=== PATIENT | female | born 1990 | race African-American/Black ===

== ENCOUNTER → 2016-07-12 | Outpatient (CLI) | payer OTHER ==
[2015-12-17 12:19] VITALS: BP 126/82
[~2016-07-12] MED LIST: AMOX500C PO; AMOX875T PO; HYDR-971 PO; IBUP-1060 PO; OXYC-244 PO; PREN1TAB58 PO
--- NOTE | 2016-07-12 15:38 | KCIC ---
PROCEDURE Transabdominal and transvaginal sonography of the pelvis HISTORY Pelvic pain. Irregular menstrual cycles. IUD placed in 2013. COMPARISON None available. FINDINGS Transabdominal sonography: The uterus is anteverted in position. The uterus and endometrial canal poorly visualized. Therefore, transvaginal sonography will be performed. Neither ovary is visualized. No adnexal masses are seen. Transvaginal sonography: The uterus is retroverted. The longitudinal and AP and transverse dimensions of the uterus are 8.3 centimeters and 4.2 centimeters and 5.5 centimeters respectively. An IUD is seen within the central aspect of the endometrial canal which is proper position. The endometrial canal measures 9 millimeters in thickness without hyperemia. No uterine mass or fibroid is seen. The right ovary measures 4.0 centimeters and 2.3 centimeters and 4.4 centimeters respectively. Multiple follicular cysts of the right ovary are seen. A collapsed corpus luteum is seen measuring 2.2 centimeters in size. The left ovary measures 4.1 centimeters and 2.4 centimeters and 3.4 centimeters in size and contains a number of follicular cysts. Color Doppler flow is seen within both ovaries. Pelvic varices are seen. IMPRESSION Pelvic varices. IUD in proper position. Electronically signed by: Akin Blackwell MD (Jul 12, 2016 15:37:14)
== END | disposition home or self-care (01) ==
LOC: KCIC US 09:50
PROVIDERS: ATTEND Family Medicine
DX: R10.2 Pelvic and perineal pain (principal); N92.6 Irregular menstruation, unspecified
CPT/HCPCS: 76830; 76856

== ENCOUNTER 2016-07-28 08:39 | Emergency (ER) | payer OTHER ==
[~2016-07-28] VITALS: Ht 154.9 cm; Wt 68.0 kg
[2016-07-28 09:10] VITALS: BP 138/75
[2016-07-28] MEDS ORDERED: KETOROLAC TROMETHAMINE 30 MG/ML INJ. IV ONE (09:15)
[2016-07-28] MEDS ORDERED: IV NORMAL SALINE 1000ML BAG 1,000 ML IV ONE (09:15)
--- NOTE | 2016-07-28 09:19 | PHYS DOC ---
Past Medical History Past Medical History: No Pertinent History Past Surgical History: Additional Past Surgical Histo: Oral surgery 12/14/2013 Alcohol Use: None Drug Use: None Adult General Chief Complaint Chief Complaint: DIZZY/LIGHT HEADED HPI HPI Patient is a 26 year old female who presents with near syncope. 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 She also reports mild frontal aching headache which is typical for her as she is blind in her right eye and has frequent tension type headaches. This headache not sudden in onset and not the worst headache of her life. She reports 2 day history of loose stools without fevers, abdominal pain, vomiting, hematochezia or melena. Denies actual syncope, fevers, chest pain, palpitations, shortness of breath, extremity numbness or weakness. Nonsmoker. PCP is Dr. Suero. Review of Systems Review of Systems Constitutional: Denies fever or chills , reports near syncope Eyes: Denies change in visual acuity HENT: Denies nasal congestion or sore throat Respiratory: Denies cough or shortness of breath Cardiovascular: Denies chest pain or edema GI: Denies abdominal pain, nausea, vomiting, bloody stools, reports diarrhea : Denies dysuria or hematuria Musculoskeletal: Denies back pain or joint pain Integument: Denies rash or skin lesions Neurologic: Reports headache, denies focal weakness or sensory changes Current Medications Current Medications Current Medications Medications (Trade) Dose Ordered Sig/Yael Start Time Stop Time Status Last Admin Dose Admin Ketorolac Tromethamine (Toradol) 30 mg 1X ONCE 07/28/16 09:15 07/28/16 09:19 DC 07/28/16 09:36 30 MG Ondansetron HCl (Zofran) 4 mg 1X ONCE 07/28/16 09:45 07/28/16 09:46 DC 07/28/16 09:41 4 MG Sodium Chloride (Iv Sodium Chloride 0.9% 1000ml Bag) 1,000 ml @ 1,000 mls/hr 1X ONCE 07/28/16 09:15 07/28/16 10:14 DC 07/28/16 09:36 1,000 MLS/HR Allergies Allergies Allergies Coded Allergies Type Severity Reaction Last Updated Verified No Known Drug Allergies 11/13/14 No Physical Exam Physical Exam Constitutional: Well developed, well nourished, no acute distress, non-toxic appearance. HENT: Normocephalic, atraumatic, bilateral external ears normal, oropharynx moist, nose normal. No sinus tenderness with palpation, posterior oropharynx no erythema, no tonsillar enlargement or exudate Eyes: PERRLA, EOMI, conjunctiva normal, no discharge. Blind in right eye. Neck: supple, no stridor. No meningismus Cardiovascular: RRR, no murmurs, no edema. Lungs & Thorax: LCTAB, no wheezing, no respiratory distress. Abdomen: soft, nontender, nondistended. Skin: Warm, dry, no erythema, no rash. Back: No tenderness. Extremities: No tenderness, no edema. No calf tenderness or swelling Neurologic: Alert and oriented X 3, cranial nerves II through XII grossly intact , symmetric strength and sensation upper and lower extremities, no focal deficits noted. Psychologic: Affect normal, judgement normal, mood normal. Current Patient Data Vital Signs Vital Signs Date Time Temp Pulse Resp B/P Pulse Ox O2 Delivery O2 Flow Rate FiO2 07/28/16 11:00 70 16 100 Room Air 07/28/16 09:10 98.4 98.4 Lab Values Laboratory Tests Test 07/28/16 08:24 07/28/16 09:07 07/28/16 09:27 POC Urine HCG, Qualitative Hcg negative (Negative) Urine Collection Type Unknown Urine Color Yellow Urine Clarity Clear Urine pH 5.5 Urine Specific [place] >=1.030 Urine Protein Negativemg/dL (NEG-TRACE) Urine Glucose (UA) Negativemg/dL (NEG) Urine Ketones (Stick) Negativemg/dL (NEG) Urine Blood Negative (NEG) Urine Nitrite Negative (NEG) Urine Bilirubin Negative (NEG) Urine Urobilinogen Dipstick 0.2mg/dL (0.2 mg/dL) Urine Leukocyte Esterase Negative (NEG) Urine RBC 0/HPF (0-2) Urine WBC Occ/HPF (0-4) Urine Squamous Epithelial Cells Many/LPF Urine Bacteria 0/HPF (0-FEW) Urine Mucus Marked/LPF White Blood Count 3.2x10^3/uL (4.0-11.0) L Red Blood Count 4.50x10^6/uL (3.50-5.40) Hemoglobin 11.0g/dL (12.0-15.5) L Hematocrit 34.6% (36.0-47.0) L Mean Corpuscular Volume 77fL (79-100) L Mean Corpuscular Hemoglobin 25pg (25-35) Mean Corpuscular Hemoglobin Concent 32g/dL (31-37) Red Cell Distribution Width 16.3% (11.5-14.5) H Platelet Count 249x10^3/uL (140-400) Neutrophils (%) (Auto) 39% (31-73) Lymphocytes (%) (Auto) 50% (24-48) H Monocytes (%) (Auto) 9% (0-9) Eosinophils (%) (Auto) 2% (0-3) Basophils (%) (Auto) 1% (0-3) Neutrophils # (Auto) 1.2x10^3uL (1.8-7.7) L Lymphocytes # (Auto) 1.6x10^3/uL (1.0-4.8) Monocytes # (Auto) 0.3x10^3/uL (0.0-1.1) Eosinophils # (Auto) 0.1x10^3/uL (0.0-0.7) Basophils # (Auto) 0.0x10^3/uL (0.0-0.2) Sodium Level 136mmol/L (136-145) Potassium Level 3.9mmol/L (3.5-5.1) Chloride Level 105mmol/L (98-107) Carbon Dioxide Level 28mmol/L (21-32) Anion Gap 3 (6-14) L Blood Urea Nitrogen 15mg/dL (7-20) Creatinine 0.8mg/dL (0.6-1.0) Estimated GFR (Cockcroft-Gault) 106.6 Glucose Level 85mg/dL (70-99) Calcium Level 8.5mg/dL (8.5-10.1) Laboratory Tests 07/28/16 09:27 Laboratory Tests 07/28/16 09:27 EKG EKG interpreted by me: NSR rate 67, no acute ST/T wave changes, normal intervals, no ectopy.[] Radiology/Procedures Radiology/Procedures [] Course & Med Decision Making Course & Med Decision Making Pertinent Labs and Imaging studies reviewed. (See chart for details) Patient presents with near syncope. Vitals stable, normal exam, no orthostatic hypotension. Gave IV fluids. Labs show mild leukopenia & anemia, both similar to previous visits. Patient felt better. Recommend rest, PO hydration, regular meals, stand slowly from sitting. Follow up in 2-[address] Suero if not improving. Come back for multiple syncope, severe/sudden onset headache, focal neuro deficit, any otherwise worsening condition. Discharged home in stable condition. [] Dragon Disclaimer Dragon Disclaimer This electronic medical record was generated, in whole or in part, using a voice recognition dictation system. Departure Departure Impression: Primary Impression: Near syncope Disposition: HOME, SELF-CARE Condition: STABLE Referrals: CIARA SUERO MD (PCP) Patient Instructions: Near-Syncope, Xliy-[id number] Additional Instructions: You were seen in the emergency department today for near fainting. No serious cause was found on your evaluation here. Please rest, drink fluids to stay hydrated, follow up with Dr. Suero in 2-3 days. Come back for worst headache of your life or sudden onset of severe headache, multiple episodes of fainting, numbness or weakness in arms or legs, any otherwise worsening condition. Scripts Ondansetron (Zofran Odt)4 Mg Tab.rapdis1 Tab SL Q8HRS PRN NAUSEA #10 TAB Prov:FRANCISCO GARCÍA MD 07/28/16 FRANCISCO GARCÍA MD Jul 28, 2016 09:19
[2016-07-28 09:42] LABS: BASO % 1 % (0-3); EOS % 2 % (0-3); HEMATOCRIT 34.6 % (36.0-47.0); LYMPH # 1.6 x10^3/uL (1.0-4.8); LYMPH % 50 % (24-48); MEAN CORPUSCULAR HEMOGLOBIN 25 pg (25-35); MEAN CORPUSCULAR HGB CONC 32 g/dL (31-37); MEAN CORPUSCULAR VOLUME 77 fL (79-100); MONO % 9 % (0-9); NEUT % 39 % (31-73); PLATELET COUNT 249 x10^3/uL (140-400); RED CELL DISTRIBUTION WIDTH 16.3 % (11.5-14.5); WHITE BLOOD COUNT 3.2 x10^3/uL (4.0-11.0)
[2016-07-28 09:43] LABS: BILIRUBIN,URINE NEGATIVE (NEG); GLUCOSE,URINE NEGATIVE (NEG); NITRITE,URINE NEGATIVE (NEG); PH,URINE 5.5; PROTEIN,URINE NEGATIVE (NEG-TRACE); UROBILINOGEN,URINE 0.2 mg/dL (0.2 mg/dL)
[2016-07-28 09:44] LABS: CALCIUM 8.5 mg/dL (8.5-10.1); CREATININE 0.8 mg/dL (0.6-1.0); GFR 106.6; POTASSIUM 3.9 mmol/L (3.5-5.1)
[2016-07-28] MEDS ORDERED: ONDANSETRON PF 4 MG/2 ML VIAL. IV ONE (09:45)
--- NOTE | 2016-07-28 10:21 | EKG ---
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
[2016-07-28 10:22] LABS: BACTERIA,URINE 0 /HPF (0-FEW); RBC,URINE 0 /HPF (0-2); SQUAMOUS EPITHELIAL CELL,UR MANY /LPF; WBC,URINE OCC /HPF (0-4)
[2016-07-28] MEDS ORDERED: ONDA4TAB10 SL (11:10)
== END 2016-07-28 11:03 | disposition home or self-care (01) ==
LOC: ER 08:39
DX: R55 Syncope and collapse (principal); G44.209 Tension-type headache, unspecified, not intractable; R42 Dizziness and giddiness; H54.41 Blindness, right eye, normal vision left eye
CPT/HCPCS: 36415; 80048; 81001; 81025; 85027; 93005; 96361; 96374; 96375; 99285; J1885; J2405; J7030

== ENCOUNTER 2016-09-10 13:17 | Emergency (ER) | payer OTHER ==
[~2016-09-10] VITALS: Ht 154.9 cm; Wt 68.0 kg
[~2016-09-10 13:17] MED LIST changes: +ONDA4TAB10 SL
[2016-09-10 13:33] VITALS: BP 126/71
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
[2016-09-10] MEDS ORDERED: CYCL10TA2 PO (15:21)
[2016-09-10] MEDS ORDERED: IBUPROFEN 800 MG TABLET. PO ONE (15:30)
== END 2016-09-10 15:32 | disposition home or self-care (01) ==
LOC: ER 13:17
DX: S16.1XXA Strain of muscle, fascia and tendon at neck level, initial encounter (principal); S39.012A Strain of muscle, fascia and tendon of lower back, initial encounter; V43.52XA Car driver injured in collision with other type car in traffic accident, initial encounter; Y93.89 Activity, other specified; Y92.413 State road as the place of occurrence of the external cause; Y99.8 Other external cause status
CPT/HCPCS: 70450; 72100; 72125; 81025; 99284-25

== ENCOUNTER 2017-03-18 15:52 | Emergency (ER) | payer OTHER ==
[~2017-03-18] VITALS: Ht 154.9 cm; Wt 70.3 kg
[~2017-03-18 15:52] MED LIST changes: +CYCL10TA2 PO; -OXYC-244 PO; +OXYC-327 PO
[2017-03-18] MEDS ORDERED: BENZONATATE 100 MG CAPSULE. PO ONE (16:30)
[2017-03-18] MEDS ORDERED: ACETAMINOPHEN 500 MG TABLET PO ONE (16:30)
[2017-03-18 16:52] LABS: BILIRUBIN,URINE NEGATIVE (NEG); GLUCOSE,URINE NEGATIVE (NEG); NITRITE,URINE NEGATIVE (NEG); PH,URINE 6.5; PROTEIN,URINE NEGATIVE (NEG-TRACE); UROBILINOGEN,URINE 0.2 mg/dL (0.2 mg/dL)
[2017-03-18 17:05] LABS: BACTERIA,URINE MANY /HPF (0-FEW); SQUAMOUS EPITHELIAL CELL,UR MANY /LPF; WBC,URINE 20-40 /HPF (0-4)
[2017-03-18 17:31] LABS: OBC FLU VALID
[2017-03-18] MEDS ORDERED: BENZ100C PO (18:14)
[2017-03-18] MEDS ORDERED: CEPH-264 PO (18:14)
[2017-03-18] MEDS ORDERED: PROAIR HFA8.5 GM INH (18:14)
[2017-03-18] MEDS ORDERED: AZIT250T6 PO (18:14)
--- NOTE | 2017-03-18 18:14 | PHYS DOC ---
Past Medical History Past Medical History: Other Additional Past Medical Histor: BLIND R EYE Past Surgical History: , Other Additional Past Surgical Histo: Oral surgery 12/14/2013 Alcohol Use: None Drug Use: None Adult General Chief Complaint Chief Complaint: FLU SYMPTOM HPI HPI Patient is a 26 year old female who presents with illness The patient reports 4 day history of loose stools several times daily, now with cough productive of green/yellow sputum, sore throat, nasal congestion, dysuria, subjective fever. Denies shortness of breath, chest pain, abdominal pain, nausea, vomiting. She did not take medication prior to arrival. 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 Review of Systems Review of Systems Constitutional: Reports fever Eyes: Denies drainage HENT: Reports nasal congestion & sore throat Respiratory: Reports cough, denies shortness of breath Cardiovascular: Denies chest pain or edema GI: Denies abdominal pain, nausea, vomiting, reports diarrhea : Reports dysuria. Musculoskeletal: Denies back pain or joint pain Integument: Denies rash Neurologic: Denies headache, focal weakness or sensory changes All other systems were reviewed and found to be within normal limits, except as documented in this note. Current Medications Current Medications Current Medications Medications (Trade) Dose Ordered Sig/Yael Start Time Stop Time Status Last Admin Dose Admin Acetaminophen (Tylenol) 1,000 mg 1X ONCE 03/18/17 16:30 03/18/17 16:31 DC 03/18/17 16:53 1,000 MG Benzonatate (Tessalon Perle) 100 mg 1X ONCE 03/18/17 16:30 03/18/17 16:31 DC 03/18/17 16:53 100 MG Allergies Allergies Allergies Coded Allergies Type Severity Reaction Last Updated Verified No Known Drug Allergies 03/04/14 No Physical Exam Physical Exam Constitutional: Well developed, well nourished, no acute distress, non-toxic appearance. HENT: Normocephalic, atraumatic, bilateral external ears normal, oropharynx moist, mild erythema to posterior oropharynx without tonsillar enlargement/ exudate, nose normal. Eyes: conjunctiva normal, no discharge. Neck: supple, no stridor. no meningismus. Cardiovascular: tachycardic, regular, no murmurs, no edema. Lungs & Thorax: LCTAB, no wheezing, no respiratory distress. Abdomen: soft, nontender, nondistended. Skin: Warm, dry, no erythema, no rash. Back: No CVA tenderness. Extremities: No tenderness, no edema. Neurologic: Alert and oriented X 3, no focal deficits noted. Psychologic: Affect normal, judgement normal, mood normal. Current Patient Data Vital Signs Vital Signs Date Time Temp Pulse Resp B/P (MAP) Pulse Ox O2 Delivery O2 Flow Rate FiO2 03/18/17 18:30 99.5 94 18 115/55 (75) 96 Room Air 99.5 Lab Values Laboratory Tests Test 03/18/17 16:40 03/18/17 16:44 03/18/17 16:50 Urine Collection Type Unknown Urine Color Yellow Urine Clarity Cloudy Urine pH 6.5 Urine Specific [place] 1.025 Urine Protein Negative mg/dL (NEG-TRACE) Urine Glucose (UA) Negative mg/dL (NEG) Urine Ketones (Stick) Negative mg/dL (NEG) Urine Blood Small (NEG) Urine Nitrite Negative (NEG) Urine Bilirubin Negative (NEG) Urine Urobilinogen Dipstick 0.2 mg/dL (0.2 mg/dL) Urine Leukocyte Esterase Large (NEG) Urine RBC 6-10 /HPF (0-2) Urine WBC 20-40 /HPF (0-4) Urine Squamous Epithelial Cells Many /LPF Urine Bacteria Many /HPF (0-FEW) Urine Mucus Marked /LPF POC Urine HCG, Qualitative Hcg negative (Negative) Influenza Type A Antigen Negative (NEGATIVE) Influenza Type B Antigen Negative (NEGATIVE) Group A Streptococcus Rapid Negative (NEGATIVE) EKG EKG [] Radiology/Procedures Radiology/Procedures CXR, 2 views: interpreted by me: possible right middle lobe infiltrate, no cardiomegaly or pneumothorax.[] Course & Med Decision Making Course & Med Decision Making Pertinent Labs and Imaging studies reviewed. (See chart for details) The patient presents with illness. Well appearing but febrile here with associated fever. Gave tylenol here. She had negative strep & flu swabs, but positive for UTI with possible pneumonia on chest x-ray. Gave prescriptions for keflex, z pack, tessalon perles, & albuterol inhaler - no wheezing on exam but has used in the past with relief from URI, possible childhood asthma. Recommend rest, hydration, tylenol/ibuprofen for pain/fever. Follow up with PCP in 2-3 days. Come back for severe shortness of breath or chest pain, severe abdominal pain, uncontrolled vomiting, any otherwise worsening condition. Discharged home in stable condition. [] Dragon Disclaimer Dragon Disclaimer This electronic medical record was generated, in whole or in part, using a voice recognition dictation system. Departure Departure Impression: Primary Impression: Urinary tract infection Additional Impression: Community acquired pneumonia Disposition: 01 HOME, SELF-CARE Condition: STABLE Referrals: CIARA SUERO MD (PCP) Patient Instructions: Pneumonia, Adult, [id number], Urinary Tract Infection, Toku-gy-Vfrp Additional Instructions: You were seen in the emergency department today and diagnosed with urinary tract infection and pneumonia. Please take the prescribed antibiotics. Rest, drink fluids, take Tylenol or ibuprofen for pain or fever, use Tessalon Perles and albuterol inhaler for cough. Follow-up with Dr. Suero in the primary care clinic in 2-3 days. Return to the emergency department for high fever, severe pain, uncontrolled vomiting, severe shortness of breath, any otherwise worsening condition. Scripts Azithromycin (AZITHROMYCIN TABLET) 250 Mg Tablet 1 PKG PO UD, #6 TAB Prov: FRANCISCO GARCÍA MD 03/18/17 Albuterol Sulfate (PROAIR HFA INHALER) 8.5 Gm Hfa.aer.ad 1 PUFF INH PRN Q6HRS Y for SHORTNESS OF BREATH, #1 INHALER 0 Refills Prov: FRANCISCO GARCÍA MD 03/18/17 Benzonatate (TESSALON PERLE) 100 Mg Capsule 100 MG PO TID Y for COUGH, #15 CAP Prov: FRANCISCO GARCÍA MD 03/18/17 Cephalexin (KEFLEX) 500 Mg Capsule 1 CAP PO BID, #14 CAP Prov: FRANCISCO GARCÍA MD 03/18/17 Problem Qualifiers FRANCISCO GARCÍA MD Mar 18, 2017 18:14
[2017-03-18 18:30] VITALS: BP 115/55
--- NOTE | 2017-03-19 07:19 | RAD ---
Chest x-ray Indication: Cough, fever, bodyaches. History of bronchitis Technique: PA and lateral views of the chest Comparison: Previous study from 2012 Findings: Heart is normal in size. Lungs are clear. No pneumothorax or pleural effusion. Visualized bony thorax is within normal limits. Impression: No acute cardiopulmonary process.
[2017-03-19 08:07] LABS: NEGATIVE OBC STREP NEG; POSITIVE OBC STREP POS
== END 2017-03-18 18:35 | disposition home or self-care (01) ==
LOC: ER 15:52
DX: N39.0 Urinary tract infection, site not specified (principal); J18.9 Pneumonia, unspecified organism; H54.61 Unqualified visual loss, right eye, normal vision left eye
CPT/HCPCS: 71020; 81001; 81025; 87070; 87086; 87804; 87880; 99285-25

== ENCOUNTER 2018-02-24 16:48 | Inpatient (IN) | payer OTHER ==
[~2018-02-24] VITALS: Ht 154.9 cm; Wt 61.2 kg
[~2018-02-24 16:48] MED LIST changes: +AZIT250T6 PO; +BENZ100C PO; +CEPH-264 PO; +PROAIR HFA8.5 GM INH
[2018-02-24] MEDS ORDERED: IV NORMAL SALINE 500ML BAG 500 ML IV ONE (18:30)
--- NOTE | 2018-02-24 18:45 | EKG ---
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
[2018-02-24 18:51] LABS: BASO % 1 % (0-3); EOS % 1 % (0-3); HEMATOCRIT 36.7 % (36.0-47.0); LYMPH # 1.8 x10^3/uL (1.0-4.8); LYMPH % 48 % (24-48); MEAN CORPUSCULAR HEMOGLOBIN 26 pg (25-35); MEAN CORPUSCULAR HGB CONC 33 g/dL (31-37); MEAN CORPUSCULAR VOLUME 79 fL (79-100); MONO # 0.4 x10^3/uL (0.0-1.1); MONO % 12 % (0-9); NEUT # 1.4 x10^3uL (1.8-7.7); NEUT % 37 % (31-73); PLATELET COUNT 272 x10^3/uL (140-400); RED BLOOD COUNT 4.63 x10^6/uL (3.50-5.40); RED CELL DISTRIBUTION WIDTH 14.7 % (11.5-14.5); WHITE BLOOD COUNT 3.7 x10^3/uL (4.0-11.0)
[2018-02-24 19:00] LABS: PROTHROMBIN TIME PATIENT 13.2 SEC (11.7-14.0)
[2018-02-24 19:01] LABS: CALCIUM 8.9 mg/dL (8.5-10.1); CREATININE 0.9 mg/dL (0.6-1.0); GFR 92.3; POTASSIUM 3.7 mmol/L (3.5-5.1)
[2018-02-24 19:05] LABS: ALBUMIN 3.9 g/dL (3.4-5.0); ALBUMIN/GLOBULIN RATIO 0.8 (1.0-1.7); MAGNESIUM 1.9 mg/dL (1.8-2.4); TOTAL BILIRUBIN 0.4 mg/dL (0.2-1.0); TOTAL PROTEIN 8.5 g/dL (6.4-8.2)
[2018-02-24 19:12] LABS: INFLUENZA A PATIENT NEGATIVE (NEGATIVE); INFLUENZA B PATIENT NEGATIVE (NEGATIVE)
[2018-02-24 19:51] LABS: BILIRUBIN,URINE SMALL (NEG); CLARITY,URINE CLOUDY; COLOR,URINE RED; NITRITE,URINE NEGATIVE (NEG); PROTEIN,URINE 30 mg/dL (NEG-TRACE)
[2018-02-24 19:59] LABS: AMPHETAMINE/METHAMPHETAMINE NEG (NEG); BARBITURATES NEG (NEG); BENZODIAZEPINES NEG (NEG); CANNABINOIDS POS (NEG); COCAINE NEG (NEG); METHADONE NEG (NEG); OPIATES NEG (NEG); PHENCYCLIDINE NEG (NEG)
[2018-02-24 20:01] LABS: BACTERIA,URINE FEW /HPF (0-FEW); RBC,URINE >40 /HPF (0-2); SQUAMOUS EPITHELIAL CELL,UR FEW /LPF
[2018-02-24] MEDS ORDERED: GADOBUTROL 7.5 MMOL/7.5 ML VIAL IV ONE (20:15)
--- NOTE | 2018-02-24 22:12 | PHYS DOC ---
Past Medical History Past Medical History: Other Additional Past Medical Histor: BLIND R EYE, NMO Past Surgical History: , Other Additional Past Surgical Histo: Oral surgery 12/14/2013 Alcohol Use: None Drug Use: None Adult General Chief Complaint Chief Complaint: MULTIPLE COMPLAINTS [facility] HPI Patient is a 27 year old female who presents with multiple complaints she says that last night she was at work she really did not feel well at all she was feeling very weak she felt lightheaded she thought that she was actually pass out at one point and in fact she doesn't even remember part of the night. She states works at the local [employer] overall IN [place] [facility] and so she asked to check her self and she was seen by her doctor there she tells me that she had an x-ray of her lungs that was negative for pneumonia. Apparently she did have a fever she tells me last night as well she says she thinks it was 103. She has had some body aches now she also notes that her legs are feeling weak she says that they feel like they're coming give out and they feel heavy and numb both legs this is new since just the symptoms started last night. She has a history of neuromyelitis optica because she is on prednisone although she had to stop it a couple of times over the last 2 months due to urinary tract infection and being on antibiotic she tells me. 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 However the prednisone and the other immune modulating agents that she is and she can't remember the name both of those have kept her symptoms relatively and check overall. She does not recall feeling this way recently. She also has bilateral low back pain worse in the middle She is having mild lower abdominal cramping she is on her menstrual cycle at this time. Review of Systems Review of Systems Constitutional: Eyes: BLIND RIGHT EYE BASELINE NO OTHER CHANGES SHE SAYS Respiratory: Cardiovascular: No additional information not addressed in HPI [] GI: Denies abdominal pain, nausea, vomiting, bloody stools or diarrhea [] : Denies dysuria or hematuria [] Musculoskeletal: Integument: Denies rash or skin lesions [] Neurologic: SEE HPI All other systems were reviewed and found to be within normal limits, except as documented in this note. Current Medications Current Medications Current Medications Medications (Trade) Dose Ordered Sig/Yael Start Time Stop Time Status Last Admin Dose Admin Gadobutrol (Gadavist) 6.5 mmol 1X ONCE 02/24/18 20:15 02/24/18 20:19 DC 02/24/18 21:50 6.5 MMOL Sodium Chloride 500 ml @ 500 mls/hr 1X ONCE 02/24/18 18:30 02/24/18 19:29 DC 02/24/18 18:35 500 MLS/HR Allergies Allergies Allergies Coded Allergies Type Severity Reaction Last Updated Verified amoxicillin Allergy Mild 02/24/18 Yes Physical Exam Physical Exam Constitutional: Well developed, well nourished, no acute distress, non-toxic appearance. [] HENT: Normocephalic, atraumatic, bilateral external ears normal, oropharynx moist, no oral exudates, nose normal. [] Eyes: PERRLA, EOMI, conjunctiva normal, no discharge. [] Neck: Normal range of motion, no tenderness, supple, no stridor. [] Cardiovascular:Heart rate regular rhythm, no murmur [] Lungs & Thorax: Bilateral breath sounds clear to auscultation [] Abdomen: Bowel sounds normal, soft, no tenderness, no masses, no pulsatile masses. [] Skin: Warm, dry, no erythema, no rash. [] Back: No tenderness, no CVA tenderness. [] Extremities: No tenderness, no cyanosis, no clubbing, ROM intact, no edema. [] Neurologic: Alert and responsive moving all extremities patient does have 4-5 strength in both the left leg and the right leg although it seems slightly weaker on the right sensation is decreased to light touch in both lower extremities. Patient also has decreased sensation to light touch in the right upper extremity possible mild decrease in the braid cutter on the right. Cranial nerves appear intact except for the second nerve and the right eye is blind at baseline. Otherwise pupils are equal round and reactive face is symmetric speech is normal Psychologic: Affect normal, judgement normal, mood normal. [] Current Patient Data Vital Signs Vital Signs Date Time Temp Pulse Resp B/P (MAP) Pulse Ox O2 Delivery O2 Flow Rate FiO2 02/24/18 18:20 72 15 121/65 (83) 100 Room Air 02/24/18 17:39 99.3 99.3 Lab Values Laboratory Tests Test 02/24/18 18:39 02/24/18 19:44 White Blood Count 3.7 x10^3/uL (4.0-11.0) L Red Blood Count 4.63 x10^6/uL (3.50-5.40) Hemoglobin 12.0 g/dL (12.0-15.5) Hematocrit 36.7 % (36.0-47.0) Mean Corpuscular Volume 79 fL (79-100) Mean Corpuscular Hemoglobin 26 pg (25-35) Mean Corpuscular Hemoglobin Concent 33 g/dL (31-37) Red Cell Distribution Width 14.7 % (11.5-14.5) H Platelet Count 272 x10^3/uL (140-400) Neutrophils (%) (Auto) 37 % (31-73) Lymphocytes (%) (Auto) 48 % (24-48) Monocytes (%) (Auto) 12 % (0-9) H Eosinophils (%) (Auto) 1 % (0-3) Basophils (%) (Auto) 1 % (0-3) Neutrophils # (Auto) 1.4 x10^3uL (1.8-7.7) L Lymphocytes # (Auto) 1.8 x10^3/uL (1.0-4.8) Monocytes # (Auto) 0.4 x10^3/uL (0.0-1.1) Eosinophils # (Auto) 0.0 x10^3/uL (0.0-0.7) Basophils # (Auto) 0.0 x10^3/uL (0.0-0.2) Prothrombin Time 13.2 SEC (11.7-14.0) Prothrombin Time INR 1.1 (0.8-1.1) Sodium Level 141 mmol/L (136-145) Potassium Level 3.7 mmol/L (3.5-5.1) Chloride Level 104 mmol/L (98-107) Carbon Dioxide Level 26 mmol/L (21-32) Anion Gap 11 (6-14) Blood Urea Nitrogen 11 mg/dL (7-20) Creatinine 0.9 mg/dL (0.6-1.0) Estimated GFR (Cockcroft-Gault) 92.3 BUN/Creatinine Ratio 12 (6-20) Glucose Level 88 mg/dL (70-99) Calcium Level 8.9 mg/dL (8.5-10.1) Magnesium Level 1.9 mg/dL (1.8-2.4) Total Bilirubin 0.4 mg/dL (0.2-1.0) Aspartate Amino Transferase (AST) 15 U/L (15-37) Alanine Aminotransferase (ALT) 15 U/L (14-59) Alkaline Phosphatase 63 U/L (46-116) Creatine Kinase 83 U/L (26-192) Total Protein 8.5 g/dL (6.4-8.2) H Albumin 3.9 g/dL (3.4-5.0) Albumin/Globulin Ratio 0.8 (1.0-1.7) L Influenza Type A Antigen Negative (NEGATIVE) Influenza Type B Antigen Negative (NEGATIVE) Urine Collection Type Unknown Urine Color Red Urine Clarity Cloudy Urine pH 6.0 Urine Specific [place] >=1.030 Urine Protein 30 mg/dL (NEG-TRACE) Urine Glucose (UA) Negative mg/dL (NEG) Urine Ketones (Stick) Trace mg/dL (NEG) Urine Blood Large (NEG) Urine Nitrite Negative (NEG) Urine Bilirubin Small (NEG) Urine Urobilinogen Dipstick 1.0 mg/dL (0.2 mg/dL) Urine Leukocyte Esterase Small (NEG) Urine RBC >40 /HPF (0-2) Urine WBC 1-4 /HPF (0-4) Urine Squamous Epithelial Cells Few /LPF Urine Bacteria Few /HPF (0-FEW) Urine Mucus Mod /LPF Urine Opiates Screen Neg (NEG) Urine Methadone Screen Neg (NEG) Urine Barbiturates Neg (NEG) Urine Phencyclidine Screen Neg (NEG) Urine Amphetamine/Methamphetamine Neg (NEG) Urine Benzodiazepines Screen Neg (NEG) Urine Cocaine Screen Neg (NEG) Urine Cannabinoids Screen Pos (NEG) Urine Ethyl Alcohol Neg (NEG) Laboratory Tests 02/24/18 18:39 Laboratory Tests 02/24/18 18:39 Microbiology 02/24/18 Urine Culture - Final, Complete 02/24/18 Urine Culture Result 1 (LUIS M) - Final, Complete EKG EKG [] Interpretation Time: EKG shows a normal sinus rhythm with a rate of 69 no acute ischemic changes noted this was interpreted by me the time of encounter. Radiology/Procedures Radiology/Procedures [] Course & Med Decision Making Course & Med Decision Making Pertinent Labs and Imaging studies reviewed. (See chart for details) []This is a 27-year-old female with a history of neuromyelitis optica presenting with sensation of weakness of her lower extremities A feel like they' re going to give out she does have objective weakness in both extremities and possibly in the right upper extremity as well as symptoms started yesterday. There does not appear to be any obvious cranial nerve involvement. Patient is maintaining an airway and does not appear to have a sensory level at this time. I did speak with Dr. HURT from neurology who did recommend that we get an MRI of the spine to evaluate for transverse myelitis I think this is a possible diagnosis for sure. If the MRI shows this the patient did receive 1 g of Solu- Medrol. At this point time I do not have that result of the MRI by have put in to admit this patient due to her leg weakness. Care will be signed over to Dr. Paulino PENDING results of the mri, to order solumedrol if mri shows evidence of transverse myelitis. Dragon Disclaimer Dragon Disclaimer This electronic medical record was generated, in whole or in part, using a voice recognition dictation system. Departure Departure Referrals: CIARA SUERO MD (PCP) CASEY QUIÑONEZ MD Feb 24, 2018 22:12
[2018-02-24 23:00] VITALS: BP 114/65
--- NOTE | 2018-02-24 23:11 | RAD ---
EXAM: Chest, single view. HISTORY: Extremity numbness. COMPARISON: None. FINDINGS: A frontal view of the chest is obtained. There is no infiltrate, pleural effusion or pneumothorax. The heart is normal in size. IMPRESSION: No acute pulmonary finding. Electronically signed by: Chantel Bonilla MD (02/24/2018 11:08 PM) [facility]
--- NOTE | 2018-02-24 23:13 | RAD ---
EXAM: Cervical, thoracic and lumbar spine MRI with and without contrast. HISTORY: Neuromyelitis optica. Extremity numbness. Concern for transverse myelitis. TECHNIQUE: Multiplanar and multisequence magnetic resonance imaging of the cervical, thoracic and lumbar spine was performed prior to and following the administration of 8 cc Gadavist intravenous contrast. COMPARISON: None. FINDINGS: Cervical spine: There is no significant listhesis. There is minimal disc desiccation and a disc bulge at C5-C6. There is no disc protrusion. There is no suspicious osseous lesion. There is no significant foraminal or central canal stenosis. The skull base and posterior fossa are unremarkable. No convincing spinal cord lesion is seen. Specifically, there is no evidence of transverse myelitis. No enhancing lesion is seen. Thoracic spine: There is no listhesis. There is no disc protrusion there is no suspicious osseous lesion. No spinal cord lesion is seen. Specifically, there is no evidence of transverse myelitis. No enhancing lesion is seen. There is no significant foraminal or central canal stenosis. Lumbar spine: There is a transitional lumbosacral segment, considered a partially lumbarized S1 segment with rudimentary S1-S2 disc for this dictation. There is mild lumbar hyperlordosis. There is no significant listhesis. There is no suspicious osseous lesion. The conus terminates at L1. There is no disc protrusion or significant stenosis. No suspicious enhancing lesion is seen. IMPRESSION: 1. No acute finding involving the cervical, thoracic or lumbar spine and no evidence of significant foraminal or central canal stenosis. 2. Given a history of demyelinating disease, further evaluation with a brain MRI may be indicated if there is continuing concern for active demyelination. Findings were discussed with the nurse caring for the patient in the ED at 1100 hours on 02/24/2018. Electronically signed by: Chantel Bonilla MD (02/24/2018 11:09 PM) [facility]
[2018-02-24] MEDS: IV NORMAL SALINE 1000ML BAG 1,000 ML IV SCH (23:19)
[2018-02-25] MEDS ORDERED: MYCO500T PO (01:03)
[2018-02-25 03:00] VITALS: BP 100/59
[2018-02-25 07:00] VITALS: BP 116/52
--- NOTE | 2018-02-25 09:19 | PDOC1 ---
History and Physical Date of Admission Date of Admission DATE: 02/25/18 TIME: 09:19 Identification/Chief Complaint Chief Complaint SEEN IN ER 27 year old female who presents with multiple complaints feeling very weak she felt lightheaded she thought that she was actually pass out . She states works at the local [employer] overall IN [place] and so she asked to check her self and she was seen by her doctor there she tells me that she had an x-ray of her lungs that was negative for pneumonia. she did have a fever she tells me last night as well she says she thinks it was 103. She has had some body aches now she also notes that her legs are feeling weak she says that they feel like they're coming give out and they feel heavy and numb . 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 However the prednisone and the other immune modulating agents SHE is unaware of dose her main complaint today is severe back pain with sciatica pain to anteroir aspect both legs Past Medical History Past Medical History Past Medical History Past Medical History: CONNECTIVE TISSUE DISEASE Additional Past Medical Histor: BLIND R EYE, NMO Past Surgical History: , Other Additional Past Surgical Histo: Oral surgery 12/14/2013 Alcohol Use: None Drug Use: None FAMILY HX NONCONTRIBUTORY Pulmonary: No pertinent hx CENTRAL NERVOUS SYSTEM: Other Endocrine: No pertinent hx Dermatology: No pertinent hx Past Surgical History Past Surgical History: No pertinent history Family History Family History: Hypertension, Other Social History Smoke: No ALCOHOL: none Drugs: None Current Medications Current Medications Current Medications Sodium Chloride 500 ml @ 500 mls/hr 1X ONCE IV Last administered on at 18:35; Start 02/24/18 at 18:30; Stop 02/24/18 at 19:29; Status DC Gadobutrol (Gadavist) 6.5 mmol 1X ONCE IV Last administered on 02/24/18at 21:50 ; Start 02/24/18 at 20:15; Stop 02/24/18 at 20:19; Status DC Sodium Chloride 1,000 ml @ 100 mls/hr Q10H IV Last administered on 02/24/18at 23:19; Start 02/24/18 at 21:04; Stop 02/25/18 at 21:03 Active Scripts Active Reported Cellcept (Mycophenolate Mofetil) 500 Mg Tablet 500 Mg PO DAILY PRN Allergies Allergies: Coded Allergies: amoxicillin (Verified Allergy, Mild, 02/24/18) ROS Review of System Review of Systems Review of Systems Constitutional: Eyes: BLIND RIGHT EYE BASELINE NO OTHER CHANGES SHE SAYS Respiratory: Cardiovascular: No additional information not addressed in HPI [] GI: Denies abdominal pain, nausea, vomiting, bloody stools or diarrhea [] : Denies dysuria or hematuria [] Musculoskeletal: pain both legs Integument: Denies rash or skin lesions [] Neurologic: SEE HPI 14 pt systems were reviewed and found to be within normal limits, except as documented General: YES: Fatigue Respiratory: No: Cough, Hemoptysis, Orthopnea, Pleuritic Pain, Shortness of breath, SOB with excertion, Sputum Changes, Stridor, Tachypnea, Wheezing, Other Gastrointestinal: No Nausea, No Vomiting, No Abdominal Pain, No Diarrhea, No Constipation, No Melena, No Hematochezia, No Other Musculoskeletal: Yes Gait Disturbance, Yes Joint Stiffness, Yes Muscle Pain Physical Exam Physical Exam Physical Exam Physical Exam Constitutional: Well developed, well nourished, no acute distress, non-toxic appearance. [] HENT: Normocephalic, atraumatic, bilateral external ears normal, oropharynx moist, no oral exudates, nose normal. [] Eyes: PERRLA, EOMI, conjunctiva normal, no discharge. [] Neck: Normal range of motion, no tenderness, supple, no stridor. [] Cardiovascular:Heart rate regular rhythm, no murmur [] Lungs & Thorax: Bilateral breath sounds clear to auscultation [] Abdomen: Bowel sounds normal, soft, no tenderness, no masses, no pulsatile masses. [] Skin: Warm, dry, no erythema, no rash. [] Back: No tenderness, no CVA tenderness. [] Extremities: No tenderness, no cyanosis, no clubbing, ROM intact, no edema. [] Neurologic: Alert , 4-5 strength in both the left leg and the right leg although it seems slightly weaker on the right sensation is decreased to light touch in both lower extremities. 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 Cranial nerves appear intact except for the second nerve and the right eye is blind at baseline. Otherwise pupils are equal round and reactive face is symmetric speech is normal Psychologic: Affect normal, judgement normal, mood normal. [] Breasts: Not examined Rectal Exam: not examined Psych/Mental Status: Mental status NL Vitals Vitals Vital Signs Date Time Temp Pulse Resp B/P (MAP) Pulse Ox O2 Delivery O2 Flow Rate FiO2 02/25/18 07:00 97.8 72 18 116/52 (73) 100 Room Air 97.8 Labs Labs Laboratory Tests Test 02/24/18 18:39 02/24/18 19:44 White Blood Count 3.7 x10^3/uL (4.0-11.0) Red Blood Count 4.63 x10^6/uL (3.50-5.40) Hemoglobin 12.0 g/dL (12.0-15.5) Hematocrit 36.7 % (36.0-47.0) Mean Corpuscular Volume 79 fL (79-100) Mean Corpuscular Hemoglobin 26 pg (25-35) Mean Corpuscular Hemoglobin Concent 33 g/dL (31-37) Red Cell Distribution Width 14.7 % (11.5-14.5) Platelet Count 272 x10^3/uL (140-400) Neutrophils (%) (Auto) 37 % (31-73) Lymphocytes (%) (Auto) 48 % (24-48) Monocytes (%) (Auto) 12 % (0-9) Eosinophils (%) (Auto) 1 % (0-3) Basophils (%) (Auto) 1 % (0-3) Neutrophils # (Auto) 1.4 x10^3uL (1.8-7.7) Lymphocytes # (Auto) 1.8 x10^3/uL (1.0-4.8) Monocytes # (Auto) 0.4 x10^3/uL (0.0-1.1) Eosinophils # (Auto) 0.0 x10^3/uL (0.0-0.7) Basophils # (Auto) 0.0 x10^3/uL (0.0-0.2) Prothrombin Time 13.2 SEC (11.7-14.0) Prothromb Time International Ratio 1.1 (0.8-1.1) Sodium Level 141 mmol/L (136-145) Potassium Level 3.7 mmol/L (3.5-5.1) Chloride Level 104 mmol/L (98-107) Carbon Dioxide Level 26 mmol/L (21-32) Anion Gap 11 (6-14) Blood Urea Nitrogen 11 mg/dL (7-20) Creatinine 0.9 mg/dL (0.6-1.0) Estimated GFR (Cockcroft-Gault) 92.3 BUN/Creatinine Ratio 12 (6-20) Glucose Level 88 mg/dL (70-99) Calcium Level 8.9 mg/dL (8.5-10.1) Magnesium Level 1.9 mg/dL (1.8-2.4) Total Bilirubin 0.4 mg/dL (0.2-1.0) Aspartate Amino Transf (AST/SGOT) 15 U/L (15-37) Alanine Aminotransferase (ALT/SGPT) 15 U/L (14-59) Alkaline Phosphatase 63 U/L (46-116) Creatine Kinase 83 U/L (26-192) Total Protein 8.5 g/dL (6.4-8.2) Albumin 3.9 g/dL (3.4-5.0) Albumin/Globulin Ratio 0.8 (1.0-1.7) Influenza Type A Antigen Negative (NEGATIVE) Influenza Type B Antigen Negative (NEGATIVE) Urine Collection Type Unknown Urine Color Red Urine Clarity Cloudy Urine pH 6.0 Urine Specific [place] >=1.030 Urine Protein 30 mg/dL (NEG-TRACE) Urine Glucose (UA) Negative mg/dL (NEG) Urine Ketones (Stick) Trace mg/dL (NEG) Urine Blood Large (NEG) Urine Nitrite Negative (NEG) Urine Bilirubin Small (NEG) Urine Urobilinogen Dipstick 1.0 mg/dL (0.2 mg/dL) Urine Leukocyte Esterase Small (NEG) Urine RBC >40 /HPF (0-2) Urine WBC 1-4 /HPF (0-4) Urine Squamous Epithelial Cells Few /LPF Urine Bacteria Few /HPF (0-FEW) Urine Mucus Mod /LPF Urine Opiates Screen Neg (NEG) Urine Methadone Screen Neg (NEG) Urine Barbiturates Neg (NEG) Urine Phencyclidine Screen Neg (NEG) Urine Amphetamine/Methamphetamine Neg (NEG) Urine Benzodiazepines Screen Neg (NEG) Urine Cocaine Screen Neg (NEG) Urine Cannabinoids Screen Pos (NEG) Urine Ethyl Alcohol Neg (NEG) Laboratory Tests Test 02/24/18 18:39 02/24/18 19:44 White Blood Count 3.7 x10^3/uL (4.0-11.0) Red Blood Count 4.63 x10^6/uL (3.50-5.40) Hemoglobin 12.0 g/dL (12.0-15.5) Hematocrit 36.7 % (36.0-47.0) Mean Corpuscular Volume 79 fL (79-100) Mean Corpuscular Hemoglobin 26 pg (25-35) Mean Corpuscular Hemoglobin Concent 33 g/dL (31-37) Red Cell Distribution Width 14.7 % (11.5-14.5) Platelet Count 272 x10^3/uL (140-400) Neutrophils (%) (Auto) 37 % (31-73) Lymphocytes (%) (Auto) 48 % (24-48) Monocytes (%) (Auto) 12 % (0-9) Eosinophils (%) (Auto) 1 % (0-3) Basophils (%) (Auto) 1 % (0-3) Neutrophils # (Auto) 1.4 x10^3uL (1.8-7.7) Lymphocytes # (Auto) 1.8 x10^3/uL (1.0-4.8) Monocytes # (Auto) 0.4 x10^3/uL (0.0-1.1) Eosinophils # (Auto) 0.0 x10^3/uL (0.0-0.7) Basophils # (Auto) 0.0 x10^3/uL (0.0-0.2) Prothrombin Time 13.2 SEC (11.7-14.0) Prothromb Time International Ratio 1.1 (0.8-1.1) Sodium Level 141 mmol/L (136-145) Potassium Level 3.7 mmol/L (3.5-5.1) Chloride Level 104 mmol/L (98-107) Carbon Dioxide Level 26 mmol/L (21-32) Anion Gap 11 (6-14) Blood Urea Nitrogen 11 mg/dL (7-20) Creatinine 0.9 mg/dL (0.6-1.0) Estimated GFR (Cockcroft-Gault) 92.3 BUN/Creatinine Ratio 12 (6-20) Glucose Level 88 mg/dL (70-99) Calcium Level 8.9 mg/dL (8.5-10.1) Magnesium Level 1.9 mg/dL (1.8-2.4) Total Bilirubin 0.4 mg/dL (0.2-1.0) Aspartate Amino Transf (AST/SGOT) 15 U/L (15-37) Alanine Aminotransferase (ALT/SGPT) 15 U/L (14-59) Alkaline Phosphatase 63 U/L (46-116) Creatine Kinase 83 U/L (26-192) Total Protein 8.5 g/dL (6.4-8.2) Albumin 3.9 g/dL (3.4-5.0) Albumin/Globulin Ratio 0.8 (1.0-1.7) Influenza Type A Antigen Negative (NEGATIVE) Influenza Type B Antigen Negative (NEGATIVE) Urine Collection Type Unknown Urine Color Red Urine Clarity Cloudy Urine pH 6.0 Urine Specific [place] >=1.030 Urine Protein 30 mg/dL (NEG-TRACE) Urine Glucose (UA) Negative mg/dL (NEG) Urine Ketones (Stick) Trace mg/dL (NEG) Urine Blood Large (NEG) Urine Nitrite Negative (NEG) Urine Bilirubin Small (NEG) Urine Urobilinogen Dipstick 1.0 mg/dL (0.2 mg/dL) Urine Leukocyte Esterase Small (NEG) Urine RBC >40 /HPF (0-2) Urine WBC 1-4 /HPF (0-4) Urine Squamous Epithelial Cells Few /LPF Urine Bacteria Few /HPF (0-FEW) Urine Mucus Mod /LPF Urine Opiates Screen Neg (NEG) Urine Methadone Screen Neg (NEG) Urine Barbiturates Neg (NEG) Urine Phencyclidine Screen Neg (NEG) Urine Amphetamine/Methamphetamine Neg (NEG) Urine Benzodiazepines Screen Neg (NEG) Urine Cocaine Screen Neg (NEG) Urine Cannabinoids Screen Pos (NEG) Urine Ethyl Alcohol Neg (NEG) Images Images EXAM: Cervical, thoracic and lumbar spine MRI with and without contrast. HISTORY: Neuromyelitis optica. Extremity numbness. Concern for transverse myelitis. TECHNIQUE: Multiplanar and multisequence magnetic resonance imaging of the cervical, thoracic and lumbar spine was performed prior to and following the administration of 8 cc Gadavist intravenous contrast. COMPARISON: None. FINDINGS: Cervical spine: There is no significant listhesis. There is minimal disc desiccation and a disc bulge at C5-C6. There is no disc protrusion. There is no suspicious osseous lesion. There is no significant foraminal or central canal stenosis. The skull base and posterior fossa are unremarkable. No convincing spinal cord lesion is seen. Specifically, there is no evidence of transverse myelitis. No enhancing lesion is seen. Thoracic spine: There is no listhesis. There is no disc protrusion there is no suspicious osseous lesion. No spinal cord lesion is seen. Specifically, there is no evidence of transverse myelitis. No enhancing lesion is seen. There is no significant foraminal or central canal stenosis. Lumbar spine: There is a transitional lumbosacral segment, considered a partially lumbarized S1 segment with rudimentary S1-S2 disc for this dictation. There is mild lumbar hyperlordosis. There is no significant listhesis. There is no suspicious osseous lesion. The conus terminates at L1. There is no disc protrusion or significant stenosis. No suspicious enhancing lesion is seen. IMPRESSION: 1. No acute finding involving the cervical, thoracic or lumbar spine and no evidence of significant foraminal or central canal stenosis. 2. Given a history of demyelinating disease, further evaluation with a brain MRI may be indicated if there is continuing concern for active demyelination. Findings were discussed with the nurse caring for the patient in the ED at 1100 hours on 02/24/2018. VTE Prophylaxis Ordered VTE Prophylaxis Devices: Yes VTE Pharmacological Prophylaxi: Yes Assessment/Plan Assessment/Plan MPRESSION: 1. No acute finding involving the cervical, thoracic or lumbar spine and no evidence of significant foraminal or central canal stenosis. 2. Given a history of demyelinating disease, further evaluation with a brain MRI may be indicated if there is continuing concern for active demyelination. 3. lower ext pain plan neurology consult mri brain LEAH GARCIA MD Feb 25, 2018 09:19
[2018-02-25 10:45] VITALS: BP 118/59
[2018-02-25] MEDS: IV NORMAL SALINE 1000ML BAG 1,000 ML IV SCH ×2 (11:08→17:04)
[2018-02-25] MEDS: HYDROcodone/APAP 5/325MG 1 TAB TABLET PO PRN (14:53)
[2018-02-25] MEDS: ONDANSETRON PF 4 MG/2 ML VIAL. IV PRN (14:54)
[2018-02-25] MEDS: MYCOPHENOLATE MOFETIL 250 MG CAPSULE. PO SCH ×2 (14:54→21:10)
[2018-02-25 15:00] VITALS: BP 121/67
[2018-02-25] MEDS ORDERED: GADOBUTROL 7.5 MMOL/7.5 ML VIAL IV ONE (15:30)
--- NOTE | 2018-02-25 16:59 | RAD ---
MRI of the Brain without and with Contrast 02/25/2018 Clinical History: Numbness and tingling and weakness involving all 4 extremities for 4 days. Technique: Unenhanced T1-weighted and FLAIR sagittal and axial and T2-weighted and diffusion-weighted axial images of the brain were obtained. After the intravenous administration of 6 cc of Gadavist, enhanced T1-weighted axial and coronal images of the brain were obtained. Findings: Comparison is made to patient's CT scan of the head dated 09/10/2016. The ventricles and sulci are within normal limits in size and configuration. No area of significant abnormal signal intensity is seen involving the brain parenchyma. No abnormal area of contrast enhancement is seen. No extra-axial fluid collection is noted. There is no MRI evidence of acute ischemia/infarction. Mild mucosal thickening in seen scattered throughout the paranasal sinuses. There are minimal bilateral mastoid effusions. Normal flow voids are seen within the major vascular structures surrounding the brain parenchyma. Impression: 1. Negative MRI of the brain. 2. Mild paranasal sinus and mastoid disease. Electronically signed by: John Encinas MD (02/25/2018 4:56 PM) [id number]
--- NOTE | 2018-02-25 17:26 | PDOC2 ---
NEUROLOGY CONSULT Date of Admission Date of Admission DATE: 02/25/18 TIME: 17:09 Reason for Consult Reason for Consult: IMPRESSION: Numbness, tingling and weakness in UE and LE for 2 days. 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 Right eye vision loss since 2010. Cannabinoids positive in test. No evidence of transverse myelitis this time. No evidence of ACID PAINTER MS, lupus, encephalitis, CVA, brain tumor on MRI this time. RECOMMENDATIONS/PLAN: C/T/L spine w/wo contrast performed, negative. Brain MRI w/wo contrast performed, negative. LP for CSF exam. Lab: see orders. Neurontin 100 mg tid. Continue her home regimen of CellCept 500 mg bid per . OT/PT. HISTORY OF THE PRESENT ILLNESS: 27-y-old AA female patient had right eye vision disturbances that started in 2010, but she was still able to see at that time. 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 She was seen in eye clinic somewhere, and was referred to [facility]. In 2016, she was found NMO positive in test in and has been treated with CellCept. She recently went to [place] with her boyfriend for about 1.5 weeks, but developed symptoms of numbness, tingling, weakness in UE and LE and dizziness after coming back from [place] to [place]. She came to [facility] ER [facility] on 02/24/18 for evaluation. Past Medical History CONNECTIVE TISSUE DISEASE BLIND R EYE, NMO , Oral surgery 12/14/2013 Past Surgical History , Oral surgery 12/14/2013 Family History Hypertension. Her paternal grandfather had vision loss. Social History Smoke: No ALCOHOL: none Drugs: Denied, but Cannabinoids positive in test on 02/24/18. ALLERGY: Reviewed. MEDICATIONS: Refer to [facility] REVIEW OF SYSTEMS: Constitutional: No malnutrition, weight loss, cachexia. Head: No traumatic brain or head injury. Skin: No edema, or rash. Ear: No infection. Eyes: Right eye vision loss. Nose: No bleeding or purulent discharges. Hearing: No hearing decrease. Neck: No injury. Breast: No history of cancer, masses,or discharges. Cardiac: HTN. Pulmonary: No pneumonia, COPD. GI: No GI ulcer, GI bleeding. Urinary/genital: No dysuria, incontinence, urinary retention. Endocrinologic: No cousin face, craniofacial dysmorphism, polydactyly. Skeletomuscular: No muscular atrophy, deformity. Neurological: see HP. Psychiatric: Denies drug use/abuse. Otherwise, not [id number] review of systems. PHYSICAL EXAMINATION: General appearance is in subacute distress. HEENT: Normocephalic and nontraumatic. Eyes, nose, ears, and throat are unremarkable. Neck is supple. No lymphadenopathy. No bruits are heard over the carotid artery. No crepitus. Cardiovascular: S1, S2, regular rate and rhythm. Pulmonary: Clear to auscultation bilaterally. Abdomen: Bowel sounds are positive. Abdomen is soft, nontender, and nondistended. Extremities: No rash, lesions, or edema. No restriction of range of motion NEUROLOGICAL EXAMINATION: Alert Oriented to time, place and person. PERRL. EOMI. CN: no focal findings. Muscle tone: within normal. Muscle strength: 4 DTR: 2 UE, 1 + at knee. Plantar reflex: Flexor response bilaterally Gait: not examined in bed. Sensory exam: no abnormal findings. No cerebellar signs elicited. F-T-N test fine. Current Medications Current Medications Current Medications Sodium Chloride 500 ml @ 500 mls/hr 1X ONCE IV Last administered on at 18:35; Start 02/24/18 at 18:30; Stop 02/24/18 at 19:29; Status DC Gadobutrol (Gadavist) 6.5 mmol 1X ONCE IV Last administered on 02/24/18at 21:50 ; Start 02/24/18 at 20:15; Stop 02/24/18 at 20:19; Status DC Sodium Chloride 1,000 ml @ 100 mls/hr Q10H IV Last administered on 02/25/18at 11:08; Start 02/24/18 at 21:04; Stop 02/25/18 at 21:03 Mycophenolate Mofetil (Cellcept) 500 mg BID PO Last administered on 02/25/18at 14:54; Start 02/25/18 at 13:30 Acetaminophen/ Hydrocodone Bitart (Lortab 5/325) 1 tab Q6HRS PRN PO PAIN Last administered on 02/25/18at 14:53; Start 02/25/18 at 14:45 Ondansetron HCl (Zofran) 4 mg Q4HRS PRN IV NAUSEA/VOMITING Last administered on 02/25/18at 14:54; Start 02/25/18 at 14:45 Gadobutrol (Gadavist) 6 mmol 1X ONCE IV Last administered on 02/25/18at 15:41; Start 02/25/18 at 15:30; Stop 02/25/18 at 15:31; Status DC Active Scripts Active Reported Cellcept (Mycophenolate Mofetil) 500 Mg Tablet 500 Mg PO BID Allergies Allergies: Allergies Coded Allergies Type Severity Reaction Last Updated Verified amoxicillin Allergy Mild 02/24/18 Yes ROS Review of System The patient denies any associated fevers, chills, headache, ear pain, rhinorrhea , sore throat, stiff neck, productive cough, chest pain, shortness of breath, back or flank pain, abdominal pain, nausea, vomiting, diarrhea, constipation, dysuria, rash, numbness, weakness, tingling, incontinence, difficulty ambulating, or diaphoresis. Physical Exam Physical Exam General: Well developed, well nourished, no acute distress, well appearing HEENT: Pupils equally round and reactive to light, EOMI, no discharge, normal conjunctiva Neck: Supple, no nuchal rigidity, no JVD, trachea midline, no tenderness Cardiac: RRR, no murmurs, no gallops, no rubs Chest/Lungs: CTAB, no wheeze, no rhonchi, no crackles Abdomen: soft, non-distended, no guarding, no peritoneal signs, non-tender Back: No tenderness Extremities: no edema, pulses intact, non-tender,capillary refill <3 sec bilateral upper and lower extremities, Neuro: Alert and oriented x 4, no focal deficits, normal speech Vitals Vitals: Vital Signs Date Time Temp Pulse Resp B/P (MAP) Pulse Ox O2 Delivery O2 Flow Rate FiO2 02/25/18 16:00 18 98 Room Air 02/25/18 15:00 98.6 69 121/67 (85) 98.6 Labs Labs Laboratory Tests Test 02/24/18 18:39 02/24/18 19:44 02/25/18 14:15 White Blood Count 3.7 x10^3/uL (4.0-11.0) Red Blood Count 4.63 x10^6/uL (3.50-5.40) Hemoglobin 12.0 g/dL (12.0-15.5) Hematocrit 36.7 % (36.0-47.0) Mean Corpuscular Volume 79 fL (79-100) Mean Corpuscular Hemoglobin 26 pg (25-35) Mean Corpuscular Hemoglobin Concent 33 g/dL (31-37) Red Cell Distribution Width 14.7 % (11.5-14.5) Platelet Count 272 x10^3/uL (140-400) Neutrophils (%) (Auto) 37 % (31-73) Lymphocytes (%) (Auto) 48 % (24-48) Monocytes (%) (Auto) 12 % (0-9) Eosinophils (%) (Auto) 1 % (0-3) Basophils (%) (Auto) 1 % (0-3) Neutrophils # (Auto) 1.4 x10^3uL (1.8-7.7) Lymphocytes # (Auto) 1.8 x10^3/uL (1.0-4.8) Monocytes # (Auto) 0.4 x10^3/uL (0.0-1.1) Eosinophils # (Auto) 0.0 x10^3/uL (0.0-0.7) Basophils # (Auto) 0.0 x10^3/uL (0.0-0.2) Prothrombin Time 13.2 SEC (11.7-14.0) Prothromb Time International Ratio 1.1 (0.8-1.1) Sodium Level 141 mmol/L (136-145) Potassium Level 3.7 mmol/L (3.5-5.1) Chloride Level 104 mmol/L (98-107) Carbon Dioxide Level 26 mmol/L (21-32) Anion Gap 11 (6-14) Blood Urea Nitrogen 11 mg/dL (7-20) Creatinine 0.9 mg/dL (0.6-1.0) Estimated GFR (Cockcroft-Gault) 92.3 BUN/Creatinine Ratio 12 (6-20) Glucose Level 88 mg/dL (70-99) Calcium Level 8.9 mg/dL (8.5-10.1) Magnesium Level 1.9 mg/dL (1.8-2.4) Total Bilirubin 0.4 mg/dL (0.2-1.0) Aspartate Amino Transf (AST/SGOT) 15 U/L (15-37) Alanine Aminotransferase (ALT/SGPT) 15 U/L (14-59) Alkaline Phosphatase 63 U/L (46-116) Creatine Kinase 83 U/L (26-192) 89 U/L (26-192) Total Protein 8.5 g/dL (6.4-8.2) Albumin 3.9 g/dL (3.4-5.0) Albumin/Globulin Ratio 0.8 (1.0-1.7) Influenza Type A Antigen Negative (NEGATIVE) Influenza Type B Antigen Negative (NEGATIVE) Urine Collection Type Unknown Urine Color Red Urine Clarity Cloudy Urine pH 6.0 Urine Specific [place] >=1.030 Urine Protein 30 mg/dL (NEG-TRACE) Urine Glucose (UA) Negative mg/dL (NEG) Urine Ketones (Stick) Trace mg/dL (NEG) Urine Blood Large (NEG) Urine Nitrite Negative (NEG) Urine Bilirubin Small (NEG) Urine Urobilinogen Dipstick 1.0 mg/dL (0.2 mg/dL) Urine Leukocyte Esterase Small (NEG) Urine RBC >40 /HPF (0-2) Urine WBC 1-4 /HPF (0-4) Urine Squamous Epithelial Cells Few /LPF Urine Bacteria Few /HPF (0-FEW) Urine Mucus Mod /LPF Urine Opiates Screen Neg (NEG) Urine Methadone Screen Neg (NEG) Urine Barbiturates Neg (NEG) Urine Phencyclidine Screen Neg (NEG) Urine Amphetamine/Methamphetamine Neg (NEG) Urine Benzodiazepines Screen Neg (NEG) Urine Cocaine Screen Neg (NEG) Urine Cannabinoids Screen Pos (NEG) Urine Ethyl Alcohol Neg (NEG) Vitamin B12 Level 571 pg/mL (247-911) Thyroid Stimulating Hormone (TSH) 0.689 uIU/mL (0.358-3.74) Laboratory Tests Test 02/24/18 18:39 02/24/18 19:44 02/25/18 14:15 White Blood Count 3.7 x10^3/uL (4.0-11.0) Red Blood Count 4.63 x10^6/uL (3.50-5.40) Hemoglobin 12.0 g/dL (12.0-15.5) Hematocrit 36.7 % (36.0-47.0) Mean Corpuscular Volume 79 fL (79-100) Mean Corpuscular Hemoglobin 26 pg (25-35) Mean Corpuscular Hemoglobin Concent 33 g/dL (31-37) Red Cell Distribution Width 14.7 % (11.5-14.5) Platelet Count 272 x10^3/uL (140-400) Neutrophils (%) (Auto) 37 % (31-73) Lymphocytes (%) (Auto) 48 % (24-48) Monocytes (%) (Auto) 12 % (0-9) Eosinophils (%) (Auto) 1 % (0-3) Basophils (%) (Auto) 1 % (0-3) Neutrophils # (Auto) 1.4 x10^3uL (1.8-7.7) Lymphocytes # (Auto) 1.8 x10^3/uL (1.0-4.8) Monocytes # (Auto) 0.4 x10^3/uL (0.0-1.1) Eosinophils # (Auto) 0.0 x10^3/uL (0.0-0.7) Basophils # (Auto) 0.0 x10^3/uL (0.0-0.2) Prothrombin Time 13.2 SEC (11.7-14.0) Prothromb Time International Ratio 1.1 (0.8-1.1) Sodium Level 141 mmol/L (136-145) Potassium Level 3.7 mmol/L (3.5-5.1) Chloride Level 104 mmol/L (98-107) Carbon Dioxide Level 26 mmol/L (21-32) Anion Gap 11 (6-14) Blood Urea Nitrogen 11 mg/dL (7-20) Creatinine 0.9 mg/dL (0.6-1.0) Estimated GFR (Cockcroft-Gault) 92.3 BUN/Creatinine Ratio 12 (6-20) Glucose Level 88 mg/dL (70-99) Calcium Level 8.9 mg/dL (8.5-10.1) Magnesium Level 1.9 mg/dL (1.8-2.4) Total Bilirubin 0.4 mg/dL (0.2-1.0) Aspartate Amino Transf (AST/SGOT) 15 U/L (15-37) Alanine Aminotransferase (ALT/SGPT) 15 U/L (14-59) Alkaline Phosphatase 63 U/L (46-116) Creatine Kinase 83 U/L (26-192) 89 U/L (26-192) Total Protein 8.5 g/dL (6.4-8.2) Albumin 3.9 g/dL (3.4-5.0) Albumin/Globulin Ratio 0.8 (1.0-1.7) Influenza Type A Antigen Negative (NEGATIVE) Influenza Type B Antigen Negative (NEGATIVE) Urine Collection Type Unknown Urine Color Red Urine Clarity Cloudy Urine pH 6.0 Urine Specific [place] >=1.030 Urine Protein 30 mg/dL (NEG-TRACE) Urine Glucose (UA) Negative mg/dL (NEG) Urine Ketones (Stick) Trace mg/dL (NEG) Urine Blood Large (NEG) Urine Nitrite Negative (NEG) Urine Bilirubin Small (NEG) Urine Urobilinogen Dipstick 1.0 mg/dL (0.2 mg/dL) Urine Leukocyte Esterase Small (NEG) Urine RBC >40 /HPF (0-2) Urine WBC 1-4 /HPF (0-4) Urine Squamous Epithelial Cells Few /LPF Urine Bacteria Few /HPF (0-FEW) Urine Mucus Mod /LPF Urine Opiates Screen Neg (NEG) Urine Methadone Screen Neg (NEG) Urine Barbiturates Neg (NEG) Urine Phencyclidine Screen Neg (NEG) Urine Amphetamine/Methamphetamine Neg (NEG) Urine Benzodiazepines Screen Neg (NEG) Urine Cocaine Screen Neg (NEG) Urine Cannabinoids Screen Pos (NEG) Urine Ethyl Alcohol Neg (NEG) Vitamin B12 Level 571 pg/mL (247-911) Thyroid Stimulating Hormone (TSH) 0.689 uIU/mL (0.358-3.74) RONEY HURT MD Feb 25, 2018 17:26
[2018-02-25 19:00] VITALS: BP 119/65
[2018-02-25] MEDS: GABAPENTIN 100 MG CAPSULE. PO SCH (21:10)
[2018-02-25 23:00] VITALS: BP 106/61
[2018-02-26 03:00] VITALS: BP 117/63
[2018-02-26 07:00] VITALS: BP 115/67
[2018-02-26] MEDS: GABAPENTIN 100 MG CAPSULE. PO SCH ×3 (07:40→20:12)
[2018-02-26] MEDS: MYCOPHENOLATE MOFETIL 250 MG CAPSULE. PO SCH ×2 (07:40→20:12)
[2018-02-26] MEDS ORDERED: LIDOCAINE WITH 8.4% SOD BICARB 3 ML DISP.SYRIN. INJ ONE (09:30)
--- NOTE | 2018-02-26 10:12 | PDOC ---
Provider Note Provider Note The fluoro guided LP was performed without difficulty utilizing a 20g spinal needle. 10cc of CSF was removed and sent to the lab for appropriate studies. The patient left the Department in good condition. KIRA LOWRY MD Feb 26, 2018 10:12
--- NOTE | 2018-02-26 10:36 | RAD ---
Fluoroscopically guided lumbar puncture, 02/26/2018: History: Leg weakness, tingling Under local anesthesia, aseptic conditions and fluoroscopic guidance a lumbar puncture was performed at the L3-4 level utilizing a 20-gauge spinal needle. The opening pressure was measured at 17 cm of water. Approximately 10 cc of CSF was removed and sent to the lab as requested. The closing pressure was 14 cm of water. The spinal needle was then removed and hemostasis obtained. 1.4 minutes of fluoroscopy time was utilized. One fluoroscopy spot image was recorded. The patient tolerated the procedure well and left the department in good condition.
--- NOTE | 2018-02-26 10:37 | PDOC ---
PROGRESS NOTES History of Present Illness History of Present Illness Assessment/Plan Assessment/Plan MPRESSION: 1. No acute finding involving the cervical, thoracic or lumbar spine and no evidence of significant foraminal or central canal stenosis. 2. Given a history of demyelinating disease, further evaluation with a brain MRI may be indicated if there is continuing concern for active demyelination. 3. lower ext pain 4. LP for CSF exam performed. plan neurology following mri brain reviewed Vitals Vitals Vital Signs Date Time Temp Pulse Resp B/P (MAP) Pulse Ox O2 Delivery O2 Flow Rate FiO2 02/26/18 07:00 98.4 63 16 115/67 (83) 99 Room Air 98.4 Labs LABS MRI of the Brain without and with Contrast 02/25/2018 Clinical History: Numbness and tingling and weakness involving all 4 extremities for 4 days. Technique: Unenhanced T1-weighted and FLAIR sagittal and axial and T2-weighted and diffusion-weighted axial images of the brain were obtained. After the intravenous administration of 6 cc of Gadavist, enhanced T1-weighted axial and coronal images of the brain were obtained. Findings: Comparison is made to patient's CT scan of the head dated 09/10/2016. The ventricles and sulci are within normal limits in size and configuration. No area of significant abnormal signal intensity is seen involving the brain parenchyma. No abnormal area of contrast enhancement is seen. No extra-axial fluid collection is noted. There is no MRI evidence of acute ischemia/infarction. Mild mucosal thickening in seen scattered throughout the paranasal sinuses. There are minimal bilateral mastoid effusions. Normal flow voids are seen within the major vascular structures surrounding the brain parenchyma. Impression: 1. Negative MRI of the brain. 2. Mild paranasal sinus and mastoid disease. Electronically signed by: John Encinas MD (02/25/2018 4:56 PM) [id number] Laboratory Tests Test 02/25/18 14:15 Creatine Kinase 89 U/L (26-192) Vitamin B12 Level 571 pg/mL (247-911) Thyroid Stimulating Hormone (TSH) 0.689 uIU/mL (0.358-3.74) HIV (1&2) Antibody Screen Nonreactive (Nonreactive) Comment Review of Relevant I have reviewed the following items marry (where applicable) has been applied. Labs Laboratory Tests Test 02/24/18 18:39 02/24/18 19:44 02/25/18 14:15 White Blood Count 3.7 x10^3/uL (4.0-11.0) Red Blood Count 4.63 x10^6/uL (3.50-5.40) Hemoglobin 12.0 g/dL (12.0-15.5) Hematocrit 36.7 % (36.0-47.0) Mean Corpuscular Volume 79 fL (79-100) Mean Corpuscular Hemoglobin 26 pg (25-35) Mean Corpuscular Hemoglobin Concent 33 g/dL (31-37) Red Cell Distribution Width 14.7 % (11.5-14.5) Platelet Count 272 x10^3/uL (140-400) Neutrophils (%) (Auto) 37 % (31-73) Lymphocytes (%) (Auto) 48 % (24-48) Monocytes (%) (Auto) 12 % (0-9) Eosinophils (%) (Auto) 1 % (0-3) Basophils (%) (Auto) 1 % (0-3) Neutrophils # (Auto) 1.4 x10^3uL (1.8-7.7) Lymphocytes # (Auto) 1.8 x10^3/uL (1.0-4.8) Monocytes # (Auto) 0.4 x10^3/uL (0.0-1.1) Eosinophils # (Auto) 0.0 x10^3/uL (0.0-0.7) Basophils # (Auto) 0.0 x10^3/uL (0.0-0.2) Prothrombin Time 13.2 SEC (11.7-14.0) Prothromb Time International Ratio 1.1 (0.8-1.1) Sodium Level 141 mmol/L (136-145) Potassium Level 3.7 mmol/L (3.5-5.1) Chloride Level 104 mmol/L (98-107) Carbon Dioxide Level 26 mmol/L (21-32) Anion Gap 11 (6-14) Blood Urea Nitrogen 11 mg/dL (7-20) Creatinine 0.9 mg/dL (0.6-1.0) Estimated GFR (Cockcroft-Gault) 92.3 BUN/Creatinine Ratio 12 (6-20) Glucose Level 88 mg/dL (70-99) Calcium Level 8.9 mg/dL (8.5-10.1) Magnesium Level 1.9 mg/dL (1.8-2.4) Total Bilirubin 0.4 mg/dL (0.2-1.0) Aspartate Amino Transf (AST/SGOT) 15 U/L (15-37) Alanine Aminotransferase (ALT/SGPT) 15 U/L (14-59) Alkaline Phosphatase 63 U/L (46-116) Creatine Kinase 83 U/L (26-192) 89 U/L (26-192) Total Protein 8.5 g/dL (6.4-8.2) Albumin 3.9 g/dL (3.4-5.0) Albumin/Globulin Ratio 0.8 (1.0-1.7) Influenza Type A Antigen Negative (NEGATIVE) Influenza Type B Antigen Negative (NEGATIVE) Urine Collection Type Unknown Urine Color Red Urine Clarity Cloudy Urine pH 6.0 Urine Specific [place] >=1.030 Urine Protein 30 mg/dL (NEG-TRACE) Urine Glucose (UA) Negative mg/dL (NEG) Urine Ketones (Stick) Trace mg/dL (NEG) Urine Blood Large (NEG) Urine Nitrite Negative (NEG) Urine Bilirubin Small (NEG) Urine Urobilinogen Dipstick 1.0 mg/dL (0.2 mg/dL) Urine Leukocyte Esterase Small (NEG) Urine RBC >40 /HPF (0-2) Urine WBC 1-4 /HPF (0-4) Urine Squamous Epithelial Cells Few /LPF Urine Bacteria Few /HPF (0-FEW) Urine Mucus Mod /LPF Urine Opiates Screen Neg (NEG) Urine Methadone Screen Neg (NEG) Urine Barbiturates Neg (NEG) Urine Phencyclidine Screen Neg (NEG) Urine Amphetamine/Methamphetamine Neg (NEG) Urine Benzodiazepines Screen Neg (NEG) Urine Cocaine Screen Neg (NEG) Urine Cannabinoids Screen Pos (NEG) Urine Ethyl Alcohol Neg (NEG) Vitamin B12 Level 571 pg/mL (247-911) Thyroid Stimulating Hormone (TSH) 0.689 uIU/mL (0.358-3.74) HIV (1&2) Antibody Screen Nonreactive (Nonreactive) Laboratory Tests Test 02/25/18 14:15 Creatine Kinase 89 U/L (26-192) Vitamin B12 Level 571 pg/mL (247-911) Thyroid Stimulating Hormone (TSH) 0.689 uIU/mL (0.358-3.74) HIV (1&2) Antibody Screen Nonreactive (Nonreactive) Medications Current Medications Sodium Chloride 500 ml @ 500 mls/hr 1X ONCE IV Last administered on 18:35; Start 02/24/18 at 18:30; Stop 02/24/18 at 19:29; Status DC Gadobutrol (Gadavist) 6.5 mmol 1X ONCE IV Last administered on 02/24/18 21:50 ; Start 02/24/18 at 20:15; Stop 02/24/18 at 20:19; Status DC Sodium Chloride 1,000 ml @ 100 mls/hr Q10H IV Last administered on 02/25/18 17:04; Start 02/24/18 at 21:04; Stop 02/25/18 at 21:03; Status DC Mycophenolate Mofetil (Cellcept) 500 mg BID PO Last administered on 02/26/18 07:40; Start 02/25/18 at 13:30 Acetaminophen/ Hydrocodone Bitart (Lortab 5/325) 1 tab Q6HRS PRN PO PAIN Last administered on 02/25/18 14:53; Start 02/25/18 at 14:45 Ondansetron HCl (Zofran) 4 mg Q4HRS PRN IV NAUSEA/VOMITING Last administered on 02/25/18 14:54; Start 02/25/18 at 14:45 Gadobutrol (Gadavist) 6 mmol 1X ONCE IV Last administered on 02/25/18at 15:41; Start 02/25/18 at 15:30; Stop 02/25/18 at 15:31; Status DC Gabapentin (Neurontin) 100 mg TID PO Last administered on 02/26/18 07:40; Start 02/25/18 at 21:00 Lidocaine/Sodium Bicarbonate (Buffered Lidocaine 1%) 6 ml 1X ONCE INJ Last administered on 02/26/18 09:30; Start 02/26/18 at 09:30; Stop 02/26/18 at 09:31 ; Status DC Active Scripts Active Reported Cellcept (Mycophenolate Mofetil) 500 Mg Tablet 500 Mg PO BID Vitals/I & O Vital Sign - Last 24 Hours 02/25/18 02/25/18 02/25/18 02/25/18 10:45 14:53 15:00 16:00 Temp 97.8 98.6 97.8 98.6 Pulse 70 69 Resp 18 B/P (MAP) 118/59 (78) 121/67 (85) Pulse Ox 100 100 98 98 O2 Delivery Room Air Room Air Room Air Room Air 02/25/18 02/25/18 02/26/18 02/26/18 19:00 23:00 03:00 07:00 Temp 99.1 98.8 98.1 98.4 99.1 98.8 98.1 98.4 Pulse 64 20 67 63 Resp 20 20 20 16 B/P (MAP) 119/65 (83) 106/61 (76) 117/63 (81) 115/67 (83) Pulse Ox 100 100 100 99 O2 Delivery Room Air Room Air Room Air Room Air Intake and Output 02/25/18 02/25/18 02/26/18 15:00 23:00 07:00 Intake Total 600 ml 1080 ml 990 ml Output Total 450 ml Balance 600 ml 630 ml 990 ml LEAH GARCIA MD Feb 26, 2018 10:37
[2018-02-26 10:58] LABS: CSF PROTEIN 23.1 mg/dL (15.0-45.0)
[2018-02-26 11:00] VITALS: BP 113/66
[2018-02-26] MEDS: ONDANSETRON PF 4 MG/2 ML VIAL. IV PRN (11:07)
[2018-02-26] MEDS: HYDROcodone/APAP 5/325MG 1 TAB TABLET PO PRN ×2 (11:07→20:11)
[2018-02-26 11:21] LABS: CSF CLARITY CLEAR; CSF COLOR COLORLESS; CSF RBC COUNT 0; CSF WBC COUNT 0
[2018-02-26 15:00] VITALS: BP 107/54
--- NOTE | 2018-02-26 15:32 | PDOC ---
PROGRESS NOTES Assessment Assessment Numbness, tingling and weakness in UE and LE, R > L, for 2 days before admission.. 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 Cannabinoids positive in test. No evidence of transverse myelitis this time. No evidence of COUNTER CLERK TRACTOR PARTS MS, lupus, encephalitis, CVA, brain tumor this time. No active neurological disorder found this time. RECOMMENDATIONS/PLAN: C/T/L spine w/wo contrast performed, negative. Brain MRI w/wo contrast performed, negative. LP for CSF exam performed. FU the rest CSF results. Neurontin 200 mg tid. Continue her home regimen of CellCept 500 mg bid per . OT/PT. FU with her physician in . HISTORY OF THE PRESENT ILLNESS: 27-y-old AA female patient had right eye vision disturbances that started in 2010, but she was still able to see at that time. 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 She was seen in eye clinic somewhere, and was referred to [facility]. In 2016, she was found NMO positive in test in and has been treated with CellCept. She recently went to [place] with her boyfriend for about 1.5 weeks, but developed symptoms of numbness, tingling, weakness in UE and LE and dizziness after coming back from [place] to [place]. She came to the ER of [facility] on 02/24/18 for evaluation. Past Medical History CONNECTIVE TISSUE DISEASE BLIND R EYE, NMO , Oral surgery 12/14/2013 Past Surgical History , Oral surgery 12/14/2013 Family History Hypertension. Her paternal grandfather had vision loss. Social History Smoke: No ALCOHOL: none Drugs: Denied, but Cannabinoids positive in test on 02/24/18. ALLERGY: Reviewed. MEDICATIONS: Refer to [facility] REVIEW OF SYSTEMS: Constitutional: No malnutrition, weight loss, cachexia. Head: No traumatic brain or head injury. Skin: No edema, or rash. Ear: No infection. Eyes: Right eye vision loss. Nose: No bleeding or purulent discharges. Hearing: No hearing decrease. Neck: No injury. Breast: No history of cancer, masses,or discharges. Cardiac: HTN. Pulmonary: No pneumonia, COPD. GI: No GI ulcer, GI bleeding. Urinary/genital: No dysuria, incontinence, urinary retention. Endocrinologic: No cousin face, craniofacial dysmorphism, polydactyly. Skeletomuscular: No muscular atrophy, deformity. Neurological: see HP. Psychiatric: Denies drug use/abuse. Otherwise, not [id number] review of systems. PHYSICAL EXAMINATION: General appearance is in no acute distress. HEENT: Normocephalic and nontraumatic. Eyes, nose, ears, and throat are unremarkable. Neck is supple. No lymphadenopathy. No bruits are heard over the carotid artery. No crepitus. Cardiovascular: S1, S2, regular rate and rhythm. Pulmonary: Clear to auscultation bilaterally. Abdomen: Bowel sounds are positive. Abdomen is soft, nontender, and nondistended. Extremities: No rash, lesions, or edema. No restriction of range of motion NEUROLOGICAL EXAMINATION: Alert Oriented to time, place and person. PERRL. EOMI. CN: no focal findings. Muscle tone: within normal. Muscle strength: 4+ DTR: 2 UE, 1 + at knee. Plantar reflex: Flexor response bilaterally Gait: able to walk. Sensory exam: no abnormal findings bilaterally. No cerebellar signs elicited. F-T-N test normal. Objective Objective Vital Signs Date Time Temp Pulse Resp B/P (MAP) Pulse Ox O2 Delivery O2 Flow Rate FiO2 02/26/18 15:00 98.1 68 16 107/54 (71) 98 Room Air 98.1 Intake and Output 02/26/18 07:00 Intake Total 2670 ml Output Total 450 ml Balance 2220 ml Intake Oral 1920 ml IV Total 750 ml Output Urine Total 450 ml # Voids 2 Vitals Signs Vitals VS - Last 72 Hours, by Label Date Time Temp Pulse Resp B/P (MAP) Pulse Ox O2 Delivery O2 Flow Rate FiO2 02/26/18 15:00 98.1 68 16 107/54 (71) 98 Room Air 98.1 02/26/18 12:08 18 99 Room Air 02/26/18 11:07 18 99 Room Air 02/26/18 11:00 98.4 63 16 113/66 (82) 99 Room Air 98.4 02/26/18 08:00 Room Air 02/26/18 07:00 98.4 63 16 115/67 (83) 99 Room Air 98.4 02/26/18 03:00 98.1 67 20 117/63 (81) 100 Room Air 98.1 02/25/18 23:00 98.8 20 20 106/61 (76) 100 Room Air 98.8 02/25/18 19:00 99.1 64 20 119/65 (83) 100 Room Air 99.1 02/25/18 15:00 98.6 69 18 121/67 (85) 98 Room Air 98.6 02/25/18 14:53 18 100 Room Air 02/25/18 10:45 97.8 70 18 118/59 (78) 100 Room Air 97.8 02/25/18 08:00 Room Air 02/25/18 07:00 97.8 72 18 116/52 (73) 100 Room Air 97.8 Laboratory Laboratory Laboratory Tests Test 02/26/18 10:10 CSF Color Colorless CSF Clarity Clear CSF WBC 0 CSF RBC 0 CSF Glucose 52 mg/dL (37-70) CSF Total Protein 23.1 mg/dL (15.0-45.0) Microbiology 02/26/18 CSF Gram Stain - Final, Complete Medication Medications Current Medications Gabapentin (Neurontin) 100 mg TID PO Last administered on 02/26/18at 14:36; Start 02/25/18 at 21:00 Gadobutrol (Gadavist) 6 mmol 1X ONCE IV Last administered on 02/25/18at 15:41; Start 02/25/18 at 15:30; Stop 02/25/18 at 15:31; Status DC Lidocaine/Sodium Bicarbonate (Buffered Lidocaine 1%) 6 ml 1X ONCE INJ Last administered on 02/26/18at 09:30; Start 02/26/18 at 09:30; Stop 02/26/18 at 09:31 ; Status DC Comment Review of Relevant I have reviewed the following items marry (where applicable) has been applied. RONEY HURT MD Feb 26, 2018 15:32
--- NOTE | 2018-02-26 17:36 | EEG ---
DATE OF SERVICE: 02/25/2018 ELECTROENCEPHALOGRAM NUMBER: [id number]. OBJECTIVE: This is a 27-year-old female patient with history of episode of mental status changes and dizziness. EEG was requested to evaluate cerebral activity and help rule out seizure. METHODS: Twenty electrodes were applied according to the international 10-20 electrode placement system. EKG monitoring, hyperventilation, intermittent photic stimulation, monopolar and bipolar montages are routinely utilized. The record was obtained on a digital system with video monitoring. FINDINGS: 1. Background: The patient was recorded in the awake, drowsy, and sleep states. The overall background amplitude is 10-30 microvolts. A posterior dominant rhythm of 8-12 Hz is observed. 2. Abnormalities: No specific epileptiform discharge or electrographic seizure is seen. No focal or diffuse slowing. 3. Activation: Hyperventilation was performed with good efforts and normal response. Intermittent photic stimulation was performed with photic driving. No specific epileptiform discharge or electrographic seizure induced by hyperventilation or intermittent photic stimulation. IMPRESSION: This electroencephalogram is a normal study for the awake, drowsy, and sleep states. No focal, lateralizing, specific epileptiform discharge, or electrographic seizure is seen. RONEY HURT MD DR: MEGAN/hilaria JOB#: [id number] / [id number] CESAR
[2018-02-26 19:00] VITALS: BP 107/55
[2018-02-26 22:36] VITALS: BP 103/49
[2018-02-26] MEDS: ONDANSETRON ODT 4 MG TAB.RAPDIS. PO PRN (23:29)
[2018-02-27 03:00] VITALS: BP 104/65
[2018-02-27] MEDS: ONDANSETRON ODT 4 MG TAB.RAPDIS. PO PRN (06:39)
[2018-02-27 07:00] VITALS: BP 102/68
[2018-02-27] MEDS: MYCOPHENOLATE MOFETIL 250 MG CAPSULE. PO SCH (09:01)
[2018-02-27] MEDS: GABAPENTIN 100 MG CAPSULE. PO SCH (09:02)
--- NOTE | 2018-02-27 10:12 | PDOC ---
PROGRESS NOTES History of Present Illness History of Present Illness Assessment/Plan Assessment/Plan MPRESSION: 1. No acute finding involving the cervical, thoracic or lumbar spine and no evidence of significant foraminal or central canal stenosis. 2. Given a history of demyelinating disease, further evaluation with a brain MRI may be indicated if there is continuing concern for active demyelination. 3. lower ext pain 4. LP for CSF exam performed. Cannabinoids positive in test. No evidence of transverse myelitis this time. No evidence of HEDGE TRIMMER MS, lupus, encephalitis, CVA, brain tumor this time. No active neurological disorder found this time. plan neurology ok with d/c home, to see [facility] neurology soon mri brain reviewed Vitals Vitals Vital Signs Date Time Temp Pulse Resp B/P (MAP) Pulse Ox O2 Delivery O2 Flow Rate FiO2 02/27/18 07:00 98.2 71 16 102/68 (79) 100 Room Air 98.2 Physical Exam General: Alert, Oriented X3, Cooperative, No acute distress Heart: Regular rate, Normal S1, Normal S2 Lungs: Clear Abdomen: Soft Extremities: No clubbing, No cyanosis Skin: No significant lesion Labs LABS Laboratory Tests Test 02/26/18 16:20 Erythrocyte Sedimentation Rate 22 (0-25) Comment Review of Relevant I have reviewed the following items marry (where applicable) has been applied. Labs Laboratory Tests Test 02/25/18 14:15 02/26/18 10:10 02/26/18 16:20 Creatine Kinase 89 U/L (26-192) Vitamin B12 Level 571 pg/mL (247-911) Thyroid Stimulating Hormone (TSH) 0.689 uIU/mL (0.358-3.74) HIV (1&2) Antibody Screen Nonreactive (Nonreactive) CSF Color Colorless CSF Clarity Clear CSF WBC 0 CSF RBC 0 CSF Glucose 52 mg/dL (37-70) CSF Total Protein 23.1 mg/dL (15.0-45.0) Erythrocyte Sedimentation Rate 22 (0-25) Laboratory Tests Test 02/26/18 16:20 Erythrocyte Sedimentation Rate 22 (0-25) Microbiology 02/26/18 CSF Gram Stain - Final, Complete Medications Current Medications Sodium Chloride 500 ml @ 500 mls/hr 1X ONCE IV Last administered on at 18:35; Start 02/24/18 at 18:30; Stop 02/24/18 at 19:29; Status DC Gadobutrol (Gadavist) 6.5 mmol 1X ONCE IV Last administered on 02/24/18 21:50 ; Start 02/24/18 at 20:15; Stop 02/24/18 at 20:19; Status DC Sodium Chloride 1,000 ml @ 100 mls/hr Q10H IV Last administered on 02/25/18 17:04; Start 02/24/18 at 21:04; Stop 02/25/18 at 21:03; Status DC Mycophenolate Mofetil (Cellcept) 500 mg BID PO Last administered on 02/27/18 09:01; Start 02/25/18 at 13:30 Acetaminophen/ Hydrocodone Bitart (Lortab 5/325) 1 tab Q6HRS PRN PO PAIN Last administered on 02/26/18 20:11; Start 02/25/18 at 14:45 Ondansetron HCl (Zofran) 4 mg Q4HRS PRN IV NAUSEA/VOMITING Last administered on 02/26/18at 11:07; Start 02/25/18 at 14:45; Stop 02/26/18 at 18:04; Status DC Gadobutrol (Gadavist) 6 mmol 1X ONCE IV Last administered on 02/25/18at 15:41; Start 02/25/18 at 15:30; Stop 02/25/18 at 15:31; Status DC Gabapentin (Neurontin) 100 mg TID PO Last administered on 02/26/18 14:36; Start 02/25/18 at 21:00; Stop 02/26/18 at 15:27; Status DC Lidocaine/Sodium Bicarbonate (Buffered Lidocaine 1%) 6 ml 1X ONCE INJ Last administered on 02/26/18at 09:30; Start 02/26/18 at 09:30; Stop 02/26/18 at 09:31 ; Status DC Gabapentin (Neurontin) 200 mg TID PO Last administered on 02/27/18 09:02; Start 02/26/18 at 21:00 Ondansetron HCl (Zofran Odt) 4 mg PRN Q6HRS PRN PO NAUSEA/VOMITING Last administered on 02/27/18 06:39; Start 02/26/18 at 18:15 Active Scripts Active Reported Cellcept (Mycophenolate Mofetil) 500 Mg Tablet 500 Mg PO BID Vitals/I & O Vital Sign - Last 24 Hours 02/26/18 02/26/18 02/26/18 02/26/18 11:00 11:07 12:08 15:00 Temp 98.4 98.1 98.4 98.1 Pulse 63 68 Resp 16 18 16 B/P (MAP) 113/66 (82) 107/54 (71) Pulse Ox 99 99 99 98 O2 Delivery Room Air Room Air Room Air 02/26/18 02/26/18 02/26/18 02/26/18 19:00 20:11 21:11 22:36 Temp 98.4 97.7 98.4 97.7 Pulse 80 65 Resp 18 18 18 17 B/P (MAP) 107/55 (72) 103/49 (67) Pulse Ox 98 97 O2 Delivery Room Air Room Air Room Air Room Air 02/27/18 02/27/18 03:00 07:00 Temp 98.0 98.2 98.0 98.2 Pulse 65 71 Resp 16 16 B/P (MAP) 104/65 (78) 102/68 (79) Pulse Ox 100 100 O2 Delivery Room Air Room Air Intake and Output 02/26/18 02/26/18 02/27/18 15:00 23:00 07:00 Intake Total 480 ml 480 ml 100 ml Output Total 200 ml Balance 480 ml 280 ml 100 ml LEAH GARCIA MD Feb 27, 2018 10:12
[2018-02-27 11:00] VITALS: BP 108/62
--- NOTE | 2018-02-27 14:37 | PDOC3 ---
Discharge Summary Date of Admission: Feb 24, 2018 Date of Discharge: Feb 27, 2018 Follow-Up: 3-5 days Admitting Diagnosis comment: Assessment/Plan Assessment/Plan MPRESSION: 1. No acute finding involving the cervical, thoracic or lumbar spine and no evidence of significant foraminal or central canal stenosis. 2. Given a history of demyelinating disease, further evaluation with a brain MRI may be indicated if there is continuing concern for active demyelination. 3. lower ext pain 4. LP for CSF exam performed. Cannabinoids positive in test. No evidence of transverse myelitis this time. No evidence of MEDICAL REVIEW COORDINATOR MS, lupus, encephalitis, CVA, brain tumor this time. No active neurological disorder found this time. plan neurology ok with d/c home, to see [facility] neurology soon mri brain reviewed Vitals Vitals Vital Signs Date Time Temp Pulse Resp B/P (MAP) Pulse Ox O2 Delivery O2 Flow Rate FiO2 02/27/18 07:00 98.2 71 16 102/68 (79) 100 Room Air 98.2 Physical Exam General: Alert, Oriented X3, Cooperative, No acute distress Heart: Regular rate, Normal S1, Normal S2 Lungs: Clear Abdomen: Soft Extremities: No clubbing, No cyanosis Skin: No significant lesion walking in halls with assist, slow Brief Hospital Course Ms. Mayer is a 27 old [sex] who presented with [weakness, thc use ] CONDITION AT DISCHARGE: Improved Discharge Medications Current Medications Sodium Chloride 500 ml @ 500 mls/hr 1X ONCE IV Last administered on 18:35; Start 02/24/18 at 18:30; Stop 02/24/18 at 19:29; Status DC Gadobutrol (Gadavist) 6.5 mmol 1X ONCE IV Last administered on 02/24/18at 21:50 ; Start 02/24/18 at 20:15; Stop 02/24/18 at 20:19; Status DC Sodium Chloride 1,000 ml @ 100 mls/hr Q10H IV Last administered on 02/25/18at 17:04; Start 02/24/18 at 21:04; Stop 02/25/18 at 21:03; Status DC Mycophenolate Mofetil (Cellcept) 500 mg BID PO Last administered on 02/27/18at 09:01; Start 02/25/18 at 13:30 Acetaminophen/ Hydrocodone Bitart (Lortab 5/325) 1 tab Q6HRS PRN PO PAIN Last administered on 02/26/18 20:11; Start 02/25/18 at 14:45 Ondansetron HCl (Zofran) 4 mg Q4HRS PRN IV NAUSEA/VOMITING Last administered on 02/26/18 11:07; Start 02/25/18 at 14:45; Stop 02/26/18 at 18:04; Status DC Gadobutrol (Gadavist) 6 mmol 1X ONCE IV Last administered on 02/25/18at 15:41; Start 02/25/18 at 15:30; Stop 02/25/18 at 15:31; Status DC Gabapentin (Neurontin) 100 mg TID PO Last administered on 02/26/18 14:36; Start 02/25/18 at 21:00; Stop 02/26/18 at 15:27; Status DC Lidocaine/Sodium Bicarbonate (Buffered Lidocaine 1%) 6 ml 1X ONCE INJ Last administered on 02/26/18 09:30; Start 02/26/18 at 09:30; Stop 02/26/18 at 09:31 ; Status DC Gabapentin (Neurontin) 200 mg TID PO Last administered on 02/27/18 09:02; Start 02/26/18 at 21:00 Ondansetron HCl (Zofran Odt) 4 mg PRN Q6HRS PRN PO NAUSEA/VOMITING Last administered on 02/27/18 06:39; Start 02/26/18 at 18:15 Active Scripts Active Reported Cellcept (Mycophenolate Mofetil) 500 Mg Tablet 500 Mg PO BID Vital Signs Vital Signs Date Time Temp Pulse Resp B/P (MAP) Pulse Ox O2 Delivery O2 Flow Rate FiO2 02/27/18 11:00 98.5 62 16 108/62 (77) 100 Room Air 98.5 Labs Laboratory Tests Test 02/26/18 10:10 02/26/18 16:20 CSF Color Colorless CSF Clarity Clear CSF WBC 0 CSF RBC 0 CSF Glucose 52 mg/dL (37-70) CSF Total Protein 23.1 mg/dL (15.0-45.0) Erythrocyte Sedimentation Rate 22 (0-25) Laboratory Tests Test 02/26/18 16:20 Erythrocyte Sedimentation Rate 22 (0-25) Allergies Allergies Coded Allergies Type Severity Reaction Last Updated Verified amoxicillin Allergy Mild 02/24/18 Yes Disposition/Orders: D/C to Home Patient Instructions d/c planning 30 min LEAH GARCIA MD Feb 27, 2018 14:37
--- NOTE | 2018-02-27 14:39 | DISCH ---
DISCHARGE INSTRUCTIONS Condition on Discharge Condition on Discharge: Stable Activity After Discharge Activity Instructions for Disc: Activity as tolerated Lifting Instructions after Dis: No heavy lifting, No pulling or pushing Exercise Instruction after Dis: Walk 10 min, 3 x per day Driving Instructions after Dis: Do not drive Diet after Discharge Diet after Discharge: Regular Checks after Discharge Checks after discharge: Check blood press - daily Contacting the DR. after DC Call your doctor for: If your condition worsens Treatment/Equipment after DC Adaptive Equipment Issued: None LEAH GARCIA MD Feb 27, 2018 14:39
[2018-02-27 15:00] VITALS: BP 106/63
--- NOTE | 2018-02-27 17:03 | PDOC ---
PROGRESS NOTES Assessment Assessment Numbness, tingling and weakness in UE and LE, R > L, for 2 days before admission. 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 Cannabinoids positive in test. No evidence of transverse myelitis this time. No evidence of CITY MAGISTRATE MS, lupus, encephalitis, CVA, brain tumor this time. No active neurological disorder found this time. RECOMMENDATIONS/PLAN: C/T/L spine w/wo contrast performed, negative. Brain MRI w/wo contrast performed, negative. LP for CSF exam performed, available results so far normal. FU the rest CSF results. Neurontin 200 mg tid. Continue her home regimen of CellCept 500 mg bid per . OT/PT. FU with her physician in . Consult Dr. Fulton for her knee pain, out-patient consult OK if discharged. HISTORY OF THE PRESENT ILLNESS: 27-y-old AA female patient had right eye vision disturbances that started in 2010, but she was still able to see at that time. 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 She was seen in eye clinic somewhere, and was referred to [facility]. In 2017, she was found NMO positive in test in and has been treated with CellCept. She recently went to [place] with her boyfriend for about 1.5 weeks, but developed symptoms of numbness, tingling, weakness in UE and LE and dizziness after coming back from [place] to [place]. She came to the ER of [facility] on 02/24/18 for evaluation. Past Medical History CONNECTIVE TISSUE DISEASE BLIND R EYE, NMO , Oral surgery 12/14/2013 Past Surgical History , Oral surgery 12/14/2013 Family History Hypertension. Her paternal grandfather had vision loss. Social History Smoke: No ALCOHOL: none Drugs: Denied, but Cannabinoids positive in test on 02/24/18. ALLERGY: Reviewed. MEDICATIONS: Refer to [facility] REVIEW OF SYSTEMS: Constitutional: No malnutrition, weight loss, cachexia. Head: No traumatic brain or head injury. Skin: No edema, or rash. Ear: No infection. Eyes: Right eye vision loss. Nose: No bleeding or purulent discharges. Hearing: No hearing decrease. Neck: No injury. Breast: No history of cancer, masses,or discharges. Cardiac: HTN. Pulmonary: No pneumonia, COPD. GI: No GI ulcer, GI bleeding. Urinary/genital: No dysuria, incontinence, urinary retention. Endocrinologic: No cousin face, craniofacial dysmorphism, polydactyly. Skeletomuscular: No muscular atrophy, deformity. Neurological: see HP. Psychiatric: Denies drug use/abuse. Otherwise, not [id number] review of systems. PHYSICAL EXAMINATION: General appearance is in no acute distress. HEENT: Normocephalic and nontraumatic. Eyes, nose, ears, and throat are unremarkable. Neck is supple. No lymphadenopathy. No bruits are heard over the carotid artery. No crepitus. Cardiovascular: S1, S2, regular rate and rhythm. Pulmonary: Clear to auscultation bilaterally. Abdomen: Bowel sounds are positive. Abdomen is soft, nontender, and nondistended. Extremities: No rash, lesions, or edema. No restriction of range of motion NEUROLOGICAL EXAMINATION: Alert Oriented to time, place and person. PERRL. EOMI. CN: no focal findings. Muscle tone: within normal. Muscle strength: 4+ DTR: 2 UE, 1 + at knee. Plantar reflex: Flexor response bilaterally Gait: able to walk. Sensory exam: no abnormal findings bilaterally. No cerebellar signs elicited. F-T-N test normal. I had very detailed and lengthy discussion with her. Total time spent >80 minutes. Objective Objective Vital Signs Date Time Temp Pulse Resp B/P (MAP) Pulse Ox O2 Delivery O2 Flow Rate FiO2 02/27/18 15:00 98.3 89 16 106/63 (77) 100 Room Air 98.3 Intake and Output 02/27/18 07:00 Intake Total 1060 ml Output Total 200 ml Balance 860 ml Intake Oral 1060 ml Output Urine Total 200 ml # Voids 3 Vitals Signs Vitals VS - Last 72 Hours, by Label Date Time Temp Pulse Resp B/P (MAP) Pulse Ox O2 Delivery O2 Flow Rate FiO2 02/27/18 15:00 98.3 89 16 106/63 (77) 100 Room Air 98.3 02/27/18 11:00 98.5 62 16 108/62 (77) 100 Room Air 98.5 02/27/18 08:00 Room Air 02/27/18 07:00 98.2 71 16 102/68 (79) 100 Room Air 98.2 02/27/18 03:00 98.0 65 16 104/65 (78) 100 Room Air 98.0 02/26/18 22:36 97.7 65 17 103/49 (67) 97 Room Air 97.7 02/26/18 21:11 18 Room Air 02/26/18 20:11 18 Room Air 02/26/18 19:00 98.4 80 18 107/55 (72) 98 Room Air 98.4 02/26/18 15:00 98.1 68 16 107/54 (71) 98 Room Air 98.1 02/26/18 12:08 99 02/26/18 11:07 18 99 Room Air 02/26/18 11:00 98.4 63 16 113/66 (82) 99 Room Air 98.4 02/26/18 08:00 Room Air 02/26/18 07:00 98.4 63 16 115/67 (83) 99 Room Air 98.4 Laboratory Laboratory Microbiology 02/26/18 CSF Gram Stain - Final, Complete Medication Medications Current Medications Gabapentin (Neurontin) 200 mg TID PO Last administered on 02/27/18at 09:02; Start 02/26/18 at 21:00 Ondansetron HCl (Zofran Odt) 4 mg PRN Q6HRS PRN PO NAUSEA/VOMITING Last administered on 02/27/18at 06:39; Start 02/26/18 at 18:15 Comment Review of Relevant I have reviewed the following items marry (where applicable) has been applied. RONEY HURT MD Feb 27, 2018 17:03
--- NOTE | 2018-02-27 17:09 | PDOC ---
PROGRESS NOTES Assessment Assessment Numbness, tingling and weakness in UE and LE, R > L, for 4 days before admission per her new information. 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 Cannabinoids positive in test. No evidence of transverse myelitis this time. No evidence of ERP PM MS, lupus, encephalitis, CVA, brain tumor this time. No active neurological disorder found this time. RECOMMENDATIONS/PLAN: C/T/L spine w/wo contrast performed, negative. Brain MRI w/wo contrast performed, negative. LP for CSF exam performed on 02/26/18 about 6 days after her symptoms onset. Available CSF results so far normal. FU the rest CSF results. Neurontin 200 mg tid. Continue her home regimen of CellCept 500 mg bid per . OT/PT. FU with her physician in . Consult Dr. Fulton for her knee pain, out-patient consult OK if discharged. HISTORY OF THE PRESENT ILLNESS: 27-y-old AA female patient had right eye vision disturbances that started in 2010, but she was still able to see at that time. 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 She was seen in eye clinic somewhere, and was referred to [facility]. In 2017, she was found NMO positive in test in and has been treated with CellCept. She recently went to [place] with her boyfriend for about 1.5 weeks, but developed symptoms of numbness, tingling, weakness in UE and LE and dizziness after coming back from [place] to [place]. She came to the ER of [facility] on 02/24/18 for evaluation. She stated on 02/27/18 that she received Flu shot in her right UE on 02/18/18, she then developed symptoms as above on 02/21/18. She came to ER on 02/24/18. Her symptoms are improved since in the hospital. Past Medical History CONNECTIVE TISSUE DISEASE BLIND R EYE, NMO , Oral surgery 12/14/2013 Past Surgical History , Oral surgery 12/14/2013 Family History Hypertension. Her paternal grandfather had vision loss. Social History Smoke: No ALCOHOL: none Drugs: Denied, but Cannabinoids positive in test on 02/24/18. ALLERGY: Reviewed. MEDICATIONS: Refer to [facility] REVIEW OF SYSTEMS: Constitutional: No malnutrition, weight loss, cachexia. Head: No traumatic brain or head injury. Skin: No edema, or rash. Ear: No infection. Eyes: Right eye vision loss. Nose: No bleeding or purulent discharges. Hearing: No hearing decrease. Neck: No injury. Breast: No history of cancer, masses,or discharges. Cardiac: HTN. Pulmonary: No pneumonia, COPD. GI: No GI ulcer, GI bleeding. Urinary/genital: No dysuria, incontinence, urinary retention. Endocrinologic: No cousin face, craniofacial dysmorphism, polydactyly. Skeletomuscular: No muscular atrophy, deformity. Neurological: see HP. Psychiatric: Denies drug use/abuse. Otherwise, not [id number] review of systems. PHYSICAL EXAMINATION: General appearance is in no acute distress. HEENT: Normocephalic and nontraumatic. Eyes, nose, ears, and throat are unremarkable. Neck is supple. No lymphadenopathy. No bruits are heard over the carotid artery. No crepitus. Cardiovascular: S1, S2, regular rate and rhythm. Pulmonary: Clear to auscultation bilaterally. Abdomen: Bowel sounds are positive. Abdomen is soft, nontender, and nondistended. Extremities: No rash, lesions, or edema. No restriction of range of motion NEUROLOGICAL EXAMINATION: Alert Oriented to time, place and person. PERRL. EOMI. CN: no focal findings. Muscle tone: within normal. Muscle strength: 4+ DTR: 2 UE, 2 at knee. Plantar reflex: Flexor response bilaterally Gait: able to walk w/o assistance. Sensory exam: no abnormal findings bilaterally. No cerebellar signs elicited. F-T-N test normal. I had very detailed and lengthy discussion with her. Total time spent >80 minutes. Objective Objective Vital Signs Date Time Temp Pulse Resp B/P (MAP) Pulse Ox O2 Delivery O2 Flow Rate FiO2 02/27/18 15:00 98.3 89 16 106/63 (77) 100 Room Air 98.3 Intake and Output 02/27/18 07:00 Intake Total 1060 ml Output Total 200 ml Balance 860 ml Intake Oral 1060 ml Output Urine Total 200 ml # Voids 3 Vitals Signs Vitals VS - Last 72 Hours, by Label Date Time Temp Pulse Resp B/P (MAP) Pulse Ox O2 Delivery O2 Flow Rate FiO2 02/27/18 15:00 98.3 89 16 106/63 (77) 100 Room Air 98.3 02/27/18 11:00 98.5 62 16 108/62 (77) 100 Room Air 98.5 02/27/18 08:00 Room Air 02/27/18 07:00 98.2 71 16 102/68 (79) 100 Room Air 98.2 02/27/18 03:00 98.0 65 16 104/65 (78) 100 Room Air 98.0 02/26/18 22:36 97.7 65 17 103/49 (67) 97 Room Air 97.7 02/26/18 21:11 18 Room Air 02/26/18 20:11 18 Room Air 02/26/18 19:00 98.4 80 18 107/55 (72) 98 Room Air 98.4 02/26/18 15:00 98.1 68 16 107/54 (71) 98 Room Air 98.1 02/26/18 12:08 99 02/26/18 11:07 18 99 Room Air 02/26/18 11:00 98.4 63 16 113/66 (82) 99 Room Air 98.4 02/26/18 08:00 Room Air 02/26/18 07:00 98.4 63 16 115/67 (83) 99 Room Air 98.4 Laboratory Laboratory Microbiology 02/26/18 CSF Gram Stain - Final, Complete Medication Medications Current Medications Gabapentin (Neurontin) 200 mg TID PO Last administered on 02/27/18at 09:02; Start 02/26/18 at 21:00; Stop 02/27/18 at 16:44; Status DC Ondansetron HCl (Zofran Odt) 4 mg PRN Q6HRS PRN PO NAUSEA/VOMITING Last administered on 02/27/18at 06:39; Start 02/26/18 at 18:15; Stop 02/27/18 at 16:44 ; Status DC Comment Review of Relevant I have reviewed the following items marry (where applicable) has been applied. RONEY HURT MD Feb 27, 2018 17:09
[2018-02-27 19:15] LABS: ANA INTERP Negative (.)
[2018-02-28 13:24] LABS: WEST NILE IGG CSF Negative (Negative); WEST NILE IGM CSF Negative (Negative)
[2018-02-28 14:34] LABS: ALBUMIN,SERUM 4.6 g/dL (3.5-5.5); CSF IGG INDEX 0.5 (0.0-0.7)
[2018-02-28 21:10] LABS: HERPES SIMPLEX TYPE 1 Negative (Negative); HERPES SIMPLEX TYPE 2 Negative (Negative)
== END 2018-02-27 16:44 | disposition home or self-care (01) | DRG 552 ==
LOC: ER 16:48 → 5 SOUTH 21:00
PROVIDERS: ADMIT Internal Medicine; ATTEND Internal Medicine
PROC: 009U3ZX Drainage of Spinal Canal, Percutaneous Approach, Diagnostic (ICD-10-PCS; principal; 2018-02-26)
PROC: B01B1ZZ Fluoroscopy of Spinal Cord using Low Osmolar Contrast (ICD-10-PCS; 2018-02-26)
DX: M54.40 Lumbago with sciatica, unspecified side (principal); G36.0 Neuromyelitis optica [Devic]; M40.56 Lordosis, unspecified, lumbar region; F12.90 Cannabis use, unspecified, uncomplicated; H54.61 Unqualified visual loss, right eye, normal vision left eye; Z79.899 Other long term (current) drug therapy; Z87.440 Personal history of urinary (tract) infections; Z82.1 Family history of blindness and visual loss; Z82.49 Family history of ischemic heart disease and other diseases of the circulatory system; Z98.891 History of uterine scar from previous surgery
CPT/HCPCS: 36415; 62270; 70553; 71045; 72156; 72157; 72158; 80053; 80307; 81001; 82550; 82607; 82787; 82945; 83735; 83916; 84157; 84443; 85025; 85610; 85651; 86038; 86703; 86788; 86789; 87071; 87075; 87086; 87529; 87804; 89051; 93005; 95816; 96361; 96374; A9585; J2405; J7030; J7040; J7517; Q0162; 97110; 97116; 99285-25